=== PATIENT | male | born 1970 | race Caucasian/White ===

== ENCOUNTER 2017-04-22 14:15 | Inpatient (IN) | payer OTHER ==
[2017-04-22] MEDS ORDERED: MAGNESIUM CITRATE 300 ML BOTTLE PO PRN (15:12)
[2017-04-22] MEDS ORDERED: hydrOXYzine PAMOATE 50 MG CAPSULE (FP) PO PRN (15:12)
[2017-04-22] MEDS ORDERED: NICOTINE POLACRILEX 2 MG GUM BUC PRN (15:12)
[2017-04-22] MEDS ORDERED: LOPERAMIDE HCL 2 MG CAPSULE PO PRN (15:12)
[2017-04-22] MEDS ORDERED: P-EPHED 60MG/TRIPROLIDI 2.5MG TABLET PO PRN (15:12)
[2017-04-22] MEDS ORDERED: MAGNESIUM HYDROX 2400MG/30ML ORAL SUSPENSION 30 ML CUP PO PRN (15:12)
[2017-04-22] MEDS ORDERED: MENTHOL/PHENOL 1 EACH UD MM PRN (15:12)
[2017-04-22] MEDS ORDERED: guaiFENesin/D-METHORPHAN HB 10 ML UNIT-DOSE CUPS PO PRN (15:12)
[2017-04-22] MEDS ORDERED: ALBUTEROL SO4 18 GM HFA INHALER IH PRN (15:15)
--- NOTE | 2017-04-22 15:15 | HP ---
[facility] Assess/Revision - Admission History Ad[facility] to Rehab [facility] Date of Admission to Rehab: 04/22/2017 - Vital signs Vital Signs: Vital Signs Period Temp Pulse Resp BP Sys/Howell Pulse Ox Last 24 Hr 98.3 F 67 18 115/59 - Findings Detox History & Physical reviewed: Yes Concur with findings: Yes Inpatient Rehab Admission - Initial Determination Are CD services needed?: Yes Free of communicable disease: Yes Not in need of hospitalization: Yes - Rehab Admission Criteria Comorbidities: Yes Patient is meeting Inpatient Rehab admission criteria:: Yes
[2017-04-22] MEDS: ALBUTEROL SO4 2.5/IPRATROPIUM 0.5 INH SOL 3 ML VIAL.NEB. NEB PRN (15:32)
[2017-04-22] MEDS: THIAMINE HCL 100 MG TABLET (FP) PO SCH (21:27)
--- NOTE | 2017-04-22 22:37 | PN ---
[facility] Progress Note Note: received nurse called that the methadone 110 mg po daily verified with [facility] detox
--- NOTE | 2017-04-22 22:39 | HP ---
Admission [facility] Allergies/Adverse Reactions: Allergies Allergy/AdvReac Type Severity Reaction Status Date / Time Fish Containing Products Allergy Verified 04/18/17 16:44 No Known Drug Allergies Allergy Verified 04/18/17 16:44 tomato Allergy Verified 04/18/17 16:44 - Ebola screening Have you traveled outside of the country in the last 21 days: No Have you had contact with anyone from an Ebola affected area: No Patient History - Patient Medical History Hx Anemia: No Hx Asthma: Yes Hx Chronic Obstructive Pulmonary Disease (COPD): Yes Hx Cancer: No Hx Cardiac Disorders: No Hx Congestive Heart Failure: No Hx Hypertension: No Hx Hypercholesterolemia: No Hx Pacemaker: No HX Cerebrovascular Accident: No Hx Seizures: Yes (childhood seizures. last 20 yrs ago) Hx Dementia: No Hx Diabetes: No Hx Gastrointestinal Disorders: No Hx Liver Disease: No Hx Genitourinary Disorders: No Hx Sexually Transmitted Disorders: No Hx Renal Disease (ESRD): No Hx Thyroid Disease: No Hx Human Immunodeficiency Virus (HIV): No Hx Hepatitis C: No Hx Depression: Yes Hx Suicide Attempt: No Hx Bipolar Disorder: No Hx Schizophrenia: No - Patient Surgical History Past Surgical History: No Hx Neurologic Surgery: No Hx Cataract Extraction: No Hx Cardiac Surgery: No Hx Lung Surgery: No Hx Breast Surgery: No Hx Breast Biopsy: No Hx Abdominal Surgery: No Hx Appendectomy: No Hx Cholecystectomy: No Hx Genitourinary Surgery: No Hx Section: No Hx Orthopedic Surgery: No Anesthesia Reaction: No - PPD History Previous Implant?: No Documented Results: Negative w/o proof Implanted On Prior [facility] Admission?: No - Smoking Cessation Smoking history: Current every day smoker Aproximately how many cigarettes per day: 15 Hx Chewing Tobacco Use: No Initiated information on smoking cessation: Yes 'Breaking Loose' booklet given: 04/22/17 - Substances Abused Alcohol Route: Oral Frequency: Daily Amount used: 6 cans of 24 oz Age of first use: 13 Date of Last Use: 04/18/17 Cocaine Route: Inhalation Frequency: Daily Amount used: $100 Age of first use: 15 Date of Last Use: 04/18/17 Family Disease History - Family Disease History Family Disease History: Heart Disease: Father (HTN), Mother ([place]), Brother ([place], ) Admission Physical Exam [facility] - Vital Signs Vital Signs: Vital Signs - 24 hr 04/22/17 14:29 Temperature 98.3 F Pulse Rate 67 Respiratory 18 Rate Blood Pressure 115/59 BHS Breath Alcohol Content Breath Alcohol Content: 0 Inpatient Rehab Admission - Initial Determination Are CD services needed?: Yes Free of communicable disease: Yes Not in need of hospitalization: Yes - Rehab Admission Criteria Previous failed treatment: Yes Poor recovery environment: Yes Comorbidities: Yes Lacks judgement: No Patient is meeting Inpatient Rehab admission criteria:: Yes
[2017-04-22] MEDS: MONTELUKAST NA 10 MG TABLET PO SCH (23:21)
[2017-04-22] MEDS: BUDESONIDE/FORMETEROL FUMARATE 80/4.5 mcg INHALER IH SCH (23:21)
[2017-04-23] MEDS ORDERED: METHADONE HCL 10 MG TABLET ONE (04:49)
[2017-04-23] MEDS ORDERED: METHADONE HCL 40 MG DISPERSABLE TABLET ONE (04:50)
[2017-04-23] MEDS ORDERED: METHADONE HCL 10 MG TABLET PO SCH (06:00)
[2017-04-23] MEDS: METHADONE 80 MG, METHADONE 30 MG PO SCH (06:08)
[2017-04-23] MEDS: IBUPROFEN 400 MG TABLET (FP) PO PRN (06:10)
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
[2017-04-23] MEDS: ALBUTEROL SO4 2.5/IPRATROPIUM 0.5 INH SOL 3 ML VIAL.NEB. NEB PRN (07:26)
[2017-04-23] MEDS: BUDESONIDE/FORMETEROL FUMARATE 80/4.5 mcg INHALER IH SCH ×2 (10:09→21:41)
[2017-04-23] MEDS: PRENATAL VITAMINS W/ FOLIC ACID TABLET (FP) PO SCH (10:09)
[2017-04-23] MEDS: NICOTINE 14 MG/24 HOURS TOPICAL PATCH TD SCH (10:09)
[2017-04-23] MEDS: ALBUTEROL SO4 2.5/IPRATROPIUM 0.5 INH SOL 3 ML VIAL.NEB. NEB SCH ×3 (18:56→21:42)
[2017-04-23] MEDS: THIAMINE HCL 100 MG TABLET (FP) PO SCH (21:41)
[2017-04-23] MEDS: MONTELUKAST NA 10 MG TABLET PO SCH (21:42)
[2017-04-24] MEDS ORDERED: METHADONE HCL 10 MG TABLET ONE (03:07)
[2017-04-24] MEDS ORDERED: METHADONE HCL 40 MG DISPERSABLE TABLET ONE (03:07)
[2017-04-24] MEDS: METHADONE 80 MG, METHADONE 30 MG PO SCH (06:27)
[2017-04-24] MEDS: ALBUTEROL SO4 2.5/IPRATROPIUM 0.5 INH SOL 3 ML VIAL.NEB. NEB SCH ×4 (06:29→21:19)
[2017-04-24] MEDS: BUDESONIDE/FORMETEROL FUMARATE 80/4.5 mcg INHALER IH SCH ×2 (10:03→21:21)
[2017-04-24] MEDS: NICOTINE 14 MG/24 HOURS TOPICAL PATCH TD SCH (10:14)
[2017-04-24] MEDS: PRENATAL VITAMINS W/ FOLIC ACID TABLET (FP) PO SCH (10:14)
[2017-04-24] MEDS: IBUPROFEN 400 MG TABLET (FP) PO PRN (17:13)
[2017-04-24] MEDS: ACETAMINOPHEN 325 MG TABLET (FP) PO PRN (18:14)
[2017-04-24] MEDS: NAPROXEN 500 MG TABLET (FP) PO SCH ×2 (21:21→22:14)
[2017-04-24] MEDS: MONTELUKAST NA 10 MG TABLET PO SCH (21:22)
[2017-04-24] MEDS: THIAMINE HCL 100 MG TABLET (FP) PO SCH (21:22)
[2017-04-24] MEDS: hydrOXYzine PAMOATE 50 MG CAPSULE (FP) PO PRN (21:24)
[2017-04-24] MEDS ORDERED: NAPROXEN 500 MG TABLET (FP) PO SCH (22:00)
[2017-04-25] MEDS ORDERED: METHADONE HCL 10 MG TABLET ONE (02:47)
[2017-04-25] MEDS ORDERED: METHADONE HCL 40 MG DISPERSABLE TABLET ONE (02:48)
[2017-04-25] MEDS: ALBUTEROL SO4 2.5/IPRATROPIUM 0.5 INH SOL 3 ML VIAL.NEB. NEB SCH ×5 (06:18→21:43)
[2017-04-25] MEDS: METHADONE 80 MG, METHADONE 30 MG PO SCH (06:19)
[2017-04-25] MEDS: PRENATAL VITAMINS W/ FOLIC ACID TABLET (FP) PO SCH (10:15)
[2017-04-25] MEDS: NAPROXEN 500 MG TABLET (FP) PO SCH ×2 (10:15→21:41)
[2017-04-25] MEDS: NICOTINE 14 MG/24 HOURS TOPICAL PATCH TD SCH (10:16)
[2017-04-25] MEDS: BUDESONIDE/FORMETEROL FUMARATE 80/4.5 mcg INHALER IH SCH ×2 (10:18→21:40)
--- NOTE | 2017-04-25 14:37 | PN ---
[facility] Progress Note Note: Tooth ache left lower molar Vital Signs - 8 hr 04/25/17 07:14 Temperature 98.3 F Pulse Rate 64 Respiratory 16 Rate Blood Pressure 136/85 Exam : Missing 2nd LLM with swollen gum Dx. : R/O Dental Abscess Gingivitis P : Amoxicillin, Viscous Lidocaine
[2017-04-25] MEDS: AMOXICILLIN 500 MG CAPSULE (FP) PO SCH ×2 (15:00→21:41)
[2017-04-25] MEDS: LIDOCAINE VISCOUS 2% ORAL/TOP 20 ML UNIT-DOSE CUP MM PRN (15:00)
[2017-04-25] MEDS: MONTELUKAST NA 10 MG TABLET PO SCH (21:41)
[2017-04-25] MEDS: THIAMINE HCL 100 MG TABLET (FP) PO SCH (21:41)
[2017-04-25] MEDS: hydrOXYzine PAMOATE 50 MG CAPSULE (FP) PO PRN (21:41)
[2017-04-26] MEDS ORDERED: METHADONE HCL 10 MG TABLET ONE (03:38)
[2017-04-26] MEDS ORDERED: METHADONE HCL 40 MG DISPERSABLE TABLET ONE (03:38)
[2017-04-26] MEDS: AMOXICILLIN 500 MG CAPSULE (FP) PO SCH ×3 (06:20→21:45)
[2017-04-26] MEDS: METHADONE 80 MG, METHADONE 30 MG PO SCH (06:21)
[2017-04-26] MEDS: ACETAMINOPHEN 325 MG TABLET (FP) PO PRN ×2 (06:22→17:22)
[2017-04-26] MEDS: PRENATAL VITAMINS W/ FOLIC ACID TABLET (FP) PO SCH (09:48)
[2017-04-26] MEDS: NICOTINE 14 MG/24 HOURS TOPICAL PATCH TD SCH (09:48)
[2017-04-26] MEDS: BUDESONIDE/FORMETEROL FUMARATE 80/4.5 mcg INHALER IH SCH ×2 (09:48→21:47)
[2017-04-26] MEDS: NAPROXEN 500 MG TABLET (FP) PO SCH ×2 (09:48→21:46)
[2017-04-26] MEDS: ALBUTEROL SO4 2.5/IPRATROPIUM 0.5 INH SOL 3 ML VIAL.NEB. NEB SCH ×4 (10:08→21:48)
[2017-04-26] MEDS: MAG HYDROX/AL HYDROX/SIMETH 30 ML UNIT-DOSE CUP PO PRN (14:54)
[2017-04-26] MEDS: hydrOXYzine PAMOATE 50 MG CAPSULE (FP) PO PRN ×2 (17:24→21:49)
[2017-04-26] MEDS: MONTELUKAST NA 10 MG TABLET PO SCH (21:45)
[2017-04-26] MEDS: HYDROCORTISONE 1% TOPICAL CREAM 30 GM TUBE TP SCH (21:46)
[2017-04-26] MEDS: THIAMINE HCL 100 MG TABLET (FP) PO SCH (21:48)
[2017-04-27] MEDS ORDERED: METHADONE HCL 40 MG DISPERSABLE TABLET ONE (02:44)
[2017-04-27] MEDS ORDERED: METHADONE HCL 10 MG TABLET ONE (02:44)
[2017-04-27] MEDS: AMOXICILLIN 500 MG CAPSULE (FP) PO SCH ×3 (06:20→21:12)
[2017-04-27] MEDS: METHADONE 80 MG, METHADONE 30 MG PO SCH (06:21)
[2017-04-27] MEDS: ALBUTEROL SO4 2.5/IPRATROPIUM 0.5 INH SOL 3 ML VIAL.NEB. NEB SCH ×5 (09:25→23:00)
[2017-04-27] MEDS: NAPROXEN 500 MG TABLET (FP) PO SCH ×2 (09:55→21:12)
[2017-04-27] MEDS: BUDESONIDE/FORMETEROL FUMARATE 80/4.5 mcg INHALER IH SCH ×2 (09:56→22:05)
[2017-04-27] MEDS: NICOTINE 14 MG/24 HOURS TOPICAL PATCH TD SCH (09:56)
[2017-04-27] MEDS: PRENATAL VITAMINS W/ FOLIC ACID TABLET (FP) PO SCH (09:56)
[2017-04-27] MEDS: HYDROCORTISONE 1% TOPICAL CREAM 30 GM TUBE TP SCH ×4 (09:56→22:05)
[2017-04-27] MEDS: LIDOCAINE VISCOUS 2% ORAL/TOP 20 ML UNIT-DOSE CUP MM PRN (09:58)
[2017-04-27] MEDS: MONTELUKAST NA 10 MG TABLET PO SCH (21:12)
[2017-04-27] MEDS: hydrOXYzine PAMOATE 50 MG CAPSULE (FP) PO PRN (21:12)
[2017-04-27] MEDS: THIAMINE HCL 100 MG TABLET (FP) PO SCH (21:12)
[2017-04-27] MEDS: MAG HYDROX/AL HYDROX/SIMETH 30 ML UNIT-DOSE CUP PO PRN (23:08)
[2017-04-28] MEDS ORDERED: METHADONE HCL 40 MG DISPERSABLE TABLET ONE (04:21)
[2017-04-28] MEDS ORDERED: METHADONE HCL 10 MG TABLET ONE (04:21)
[2017-04-28] MEDS: METHADONE 80 MG, METHADONE 30 MG PO SCH (05:59)
[2017-04-28] MEDS: AMOXICILLIN 500 MG CAPSULE (FP) PO SCH ×3 (06:00→21:44)
[2017-04-28] MEDS: NICOTINE 14 MG/24 HOURS TOPICAL PATCH TD SCH (10:31)
[2017-04-28] MEDS: BUDESONIDE/FORMETEROL FUMARATE 80/4.5 mcg INHALER IH SCH ×2 (10:31→21:44)
[2017-04-28] MEDS: ALBUTEROL SO4 2.5/IPRATROPIUM 0.5 INH SOL 3 ML VIAL.NEB. NEB SCH ×4 (10:32→21:43)
[2017-04-28] MEDS: NAPROXEN 500 MG TABLET (FP) PO SCH ×2 (10:32→21:44)
[2017-04-28] MEDS: PRENATAL VITAMINS W/ FOLIC ACID TABLET (FP) PO SCH (10:32)
[2017-04-28] MEDS: HYDROCORTISONE 1% TOPICAL CREAM 30 GM TUBE TP SCH ×4 (10:32→21:48)
--- NOTE | 2017-04-28 12:01 | PN ---
S Progress Note Note: c/o toothaceh still on antibiotics and naprosyn, will start neurontin 100mg tid for nerve pain can increase as needed.
--- NOTE | 2017-04-28 13:11 | PN ---
Psychiatric Progress Note Vital Signs: Vital Signs Period Temp Pulse Resp BP Sys/Howell Pulse Ox Last 24 Hr 98.2 F 63 18 144/78 Date of Session: 04/28/17 Chief Complaint:: Auditory hallucinatioms and anxiety HPI: Patient addressing Alcohol Dependence comorbid with Opoid Dependence on Agonist Therapy, Nicotine Dependence, Mood Disorder and Substance-induced Sleep Disorder ROS: Asthma, PPD+, H/O Seizure Disorder, H/O [place] s/p stent Current Medications: Active Medications Generic Name Dose Route Start Last Admin Trade Name Freq PRN Reason Stop Dose Admin Acetaminophen 650 mg 04/22/17 15:12 04/26/17 17:22 Tylenol - PO 650 mg Q4H PRN Administration FEVER OR PAIN Al Hydroxide/Mg Hydroxide 30 ml 04/22/17 15:12 04/27/17 23:08 Mylanta Oral Suspension - PO 30 ml Q6H PRN Administration DYSPEPSIA Albuterol Sulfate 2 puff 04/22/17 15:15 04/26/17 17:24 Ventolin Hfa Inhaler - IH 2 puff Q4H PRN Administration Albuterol/Ipratropium 1 amp 04/23/17 14:00 04/28/17 10:32 Duoneb - NEB 1 amp Q4HWA SAUL Administration Amoxicillin 500 mg 04/25/17 14:45 04/28/17 06:00 Amoxicillin - PO 500 mg TID SAUL Administration Budesonide/Formoterol Fumarate 2 puff 04/22/17 22:00 04/28/17 10:31 Symbicort 80/4.5mcg - IH 2 puff BID SAUL Administration Eucalyptus/Menthol/Phenol/Sorbitol 1 each 04/22/17 15:12 Cepastat Lozenge - MM Q4H PRN SORE THROAT Gabapentin 100 mg 04/28/17 14:00 Neurontin - PO TID SAUL Guaifenesin 10 ml 04/22/17 15:12 Robitussin Dm - PO Q6H PRN COUGH Hydrocortisone 1 applic 04/26/17 22:00 04/28/17 10:32 Hytone 1% Cream - TP 1 applic QID SAUL Administration Hydroxyzine Pamoate 50 mg 04/23/17 10:25 04/27/17 21:12 Vistaril - PO 50 mg Q4H PRN Administration ANXIETY Lidocaine HCl 20 ml 04/25/17 14:33 04/27/17 09:58 Xylocaine 2% Viscous Oral - MM 20 ml Q4HPO PRN Administration ORAL PAIN/MOUTH SORES Loperamide HCl 4 mg 04/22/17 15:12 Imodium - PO Q6H PRN DIARRHEA Magnesium Hydroxide 30 ml 04/22/17 15:12 Milk Of Magnesia - PO DAILY PRN CONSTIPATION Methadone HCl 80 mg/ Methadone 110 mg 04/29/17 06:00 HCl 30 mg PO 05/05/17 05:59 DAILY@0600 SAUL Montelukast Sodium 10 mg 04/22/17 22:00 04/27/17 21:12 Singulair - PO 10 mg HS SAUL Administration Naproxen 500 mg 04/24/17 21:05 04/28/17 10:32 Naprosyn - PO 500 mg BID SAUL Administration Nicotine 14 mg 04/23/17 10:00 04/28/17 10:31 Nicoderm Patch - TD 14 mg DAILY SAUL Administration Nicotine Polacrilex 2 mg 04/22/17 15:12 Nicorette Gum - BUC Q2H PRN NICOTINE REPLACEMENT RX Multivit/Folic Acid/Iron 1 tab 04/23/17 10:00 04/28/17 10:32 Vitamins (Sjr) - PO 1 tab DAILY SAUL Administration Pseudoephedrine/Triprolidine 1 combo 04/22/17 15:12 Actifed - PO TID PRN NASAL CONGESTION Quetiapine Fumarate 100 mg 04/28/17 22:00 Seroquel - PO HS SAUL Thiamine HCl 100 mg 04/22/17 22:00 04/27/17 21:12 Vitamin B1 - PO 100 mg HS SUAL Administration Medication(s) Change(s): Start Seroquel 100 mg po HS Current Side Effect: No Lab tests ordered: Yes Lab tests reviewed: Yes Provider note:: Requested to see science writer. Met with patient in the office. Reports that he feels like his mental illness is coming back. Claims he has been hearing voices and feeling very anxious. He said that he comes here to address his substance abuse problem so he can resumes his psychiatriatric care in the community. Denies hearing voices, suicidal, homicidal ideations Total face to face time:: 25 Mental Status Exam - Mental Status Exam Alert and Oriented to: Time, Place, Person Cognitive Function: Fair Mood: Anxious Affect: Appropriate Patient Behavior: Cooperative Speech Pattern: Clear Voice Loudness: Normal Thought Process: Intact Thought Disorder: Not Present Hallucinations: Denies (at present) Suicidal Ideation: Denies Homicidal Ideation: Denies Sleep: Fair Appetite: Good Muscle strength/Tone: Normal Gait/Station: Spastic Psychiatric Treatment Plan - Problem List (1) Opioid dependence on agonist therapy Current Visit: No (2) Stented coronary artery Current Visit: No Initial treatment plan: 1) Start Seroquel 100 mg po HS. 2) Monitor progress (3) Status post myocardial infarction of inferior wall Current Visit: No (4) Asthma Current Visit: No Qualifiers: Asthma severity: mild Asthma persistence: intermittent Asthma complication type: uncomplicated Qualified Code(s): J45.20 - Mild intermittent asthma, uncomplicated (5) Substance induced mood disorder Current Visit: No (6) Substance-induced sleep disorder Current Visit: No (7) Nicotine dependence Current Visit: No Qualifiers: Nicotine product type: cigarettes Substance use status: in withdrawal Qualified Code(s): F17.213 - Nicotine dependence, cigarettes, with withdrawal (8) PPD positive, treated Current Visit: No (9) History of seizure Current Visit: No (10) Alcohol dependence Current Visit: Yes (11) Mood disorder Current Visit: Yes Initial treatment plan: 1) Start Seroquel 100 mg po HS. 2) Monitor progress
[2017-04-28] MEDS: GABAPENTIN 100 MG CAPSULE (FP) PO SCH ×2 (13:45→21:44)
[2017-04-28] MEDS: hydrOXYzine PAMOATE 50 MG CAPSULE (FP) PO PRN ×2 (13:46→23:46)
[2017-04-28] MEDS: THIAMINE HCL 100 MG TABLET (FP) PO SCH (21:44)
[2017-04-28] MEDS: MONTELUKAST NA 10 MG TABLET PO SCH (21:44)
[2017-04-28] MEDS: QUEtiapine FUMARATE 100 MG TABLET (FP) PO SCH (21:45)
[2017-04-29] MEDS ORDERED: METHADONE HCL 40 MG DISPERSABLE TABLET ONE (04:17)
[2017-04-29] MEDS ORDERED: METHADONE HCL 10 MG TABLET ONE (04:17)
[2017-04-29] MEDS: METHADONE 80 MG, METHADONE 30 MG PO SCH (06:24)
[2017-04-29] MEDS: GABAPENTIN 100 MG CAPSULE (FP) PO SCH ×3 (06:25→21:46)
[2017-04-29] MEDS: AMOXICILLIN 500 MG CAPSULE (FP) PO SCH ×3 (06:25→21:46)
[2017-04-29] MEDS: ACETAMINOPHEN 325 MG TABLET (FP) PO PRN ×2 (06:28→14:29)
[2017-04-29] MEDS: LIDOCAINE VISCOUS 2% ORAL/TOP 20 ML UNIT-DOSE CUP MM PRN (06:29)
[2017-04-29] MEDS: ALBUTEROL SO4 2.5/IPRATROPIUM 0.5 INH SOL 3 ML VIAL.NEB. NEB SCH ×5 (07:32→18:01)
[2017-04-29] MEDS: BUDESONIDE/FORMETEROL FUMARATE 80/4.5 mcg INHALER IH SCH ×2 (10:09→21:45)
[2017-04-29] MEDS: NAPROXEN 500 MG TABLET (FP) PO SCH ×2 (10:10→21:45)
[2017-04-29] MEDS: PRENATAL VITAMINS W/ FOLIC ACID TABLET (FP) PO SCH (10:10)
[2017-04-29] MEDS: NICOTINE 14 MG/24 HOURS TOPICAL PATCH TD SCH (10:10)
[2017-04-29] MEDS: HYDROCORTISONE 1% TOPICAL CREAM 30 GM TUBE TP SCH ×4 (10:10→21:51)
[2017-04-29] MEDS: MAG HYDROX/AL HYDROX/SIMETH 30 ML UNIT-DOSE CUP PO PRN (11:23)
[2017-04-29] MEDS: THIAMINE HCL 100 MG TABLET (FP) PO SCH (21:45)
[2017-04-29] MEDS: MONTELUKAST NA 10 MG TABLET PO SCH (21:46)
[2017-04-29] MEDS: QUEtiapine FUMARATE 100 MG TABLET (FP) PO SCH (21:46)
[2017-04-30] MEDS ORDERED: METHADONE HCL 10 MG TABLET ONE (04:15)
[2017-04-30] MEDS ORDERED: METHADONE HCL 40 MG DISPERSABLE TABLET ONE (04:16)
[2017-04-30] MEDS: GABAPENTIN 100 MG CAPSULE (FP) PO SCH ×3 (06:00→21:51)
[2017-04-30] MEDS: METHADONE 80 MG, METHADONE 30 MG PO SCH (06:00)
[2017-04-30] MEDS: AMOXICILLIN 500 MG CAPSULE (FP) PO SCH ×3 (06:00→21:51)
[2017-04-30] MEDS: ALBUTEROL SO4 2.5/IPRATROPIUM 0.5 INH SOL 3 ML VIAL.NEB. NEB SCH ×6 (07:37→21:53)
[2017-04-30] MEDS: NICOTINE 14 MG/24 HOURS TOPICAL PATCH TD SCH (10:09)
[2017-04-30] MEDS: PRENATAL VITAMINS W/ FOLIC ACID TABLET (FP) PO SCH (10:09)
[2017-04-30] MEDS: NAPROXEN 500 MG TABLET (FP) PO SCH ×2 (10:09→21:51)
[2017-04-30] MEDS: HYDROCORTISONE 1% TOPICAL CREAM 30 GM TUBE TP SCH ×4 (10:09→21:53)
[2017-04-30] MEDS: BUDESONIDE/FORMETEROL FUMARATE 80/4.5 mcg INHALER IH SCH ×2 (10:10→21:51)
--- NOTE | 2017-04-30 12:35 | PN ---
[facility] Progress Note (SOAP) Subjective: c/o athletes feet requesting cream Objective: 04/30/17 12:34 Vital Signs - 24 hr 04/30/17 04/30/17 04/30/17 00:30 03:30 08:17 Temperature 98.3 F Pulse Rate 62 Respiratory 20 20 20 Rate Blood Pressure 127/78 athletes foot Assessment: 04/30/17 12:34 athletes feet Plan: tinactin ordered, coulsed re: foot hygiene
[2017-04-30] MEDS: TOLNAFTATE 1% CREAM 15 GM TUBE TP SCH ×2 (14:23→21:55)
[2017-04-30] MEDS: ACETAMINOPHEN 325 MG TABLET (FP) PO PRN (14:25)
[2017-04-30] MEDS: MAG HYDROX/AL HYDROX/SIMETH 30 ML UNIT-DOSE CUP PO PRN (19:17)
[2017-04-30] MEDS: MONTELUKAST NA 10 MG TABLET PO SCH (21:51)
[2017-04-30] MEDS: QUEtiapine FUMARATE 100 MG TABLET (FP) PO SCH (21:51)
[2017-04-30] MEDS: THIAMINE HCL 100 MG TABLET (FP) PO SCH (21:51)
[2017-04-30] MEDS: hydrOXYzine PAMOATE 50 MG CAPSULE (FP) PO PRN (21:56)
[2017-05-01] MEDS ORDERED: METHADONE HCL 10 MG TABLET ONE (05:49)
[2017-05-01] MEDS ORDERED: METHADONE HCL 40 MG DISPERSABLE TABLET ONE (05:49)
[2017-05-01] MEDS: METHADONE 80 MG, METHADONE 30 MG PO SCH (06:42)
[2017-05-01] MEDS: AMOXICILLIN 500 MG CAPSULE (FP) PO SCH ×3 (06:42→21:35)
[2017-05-01] MEDS: GABAPENTIN 100 MG CAPSULE (FP) PO SCH ×3 (06:42→21:35)
[2017-05-01] MEDS: ALBUTEROL SO4 2.5/IPRATROPIUM 0.5 INH SOL 3 ML VIAL.NEB. NEB SCH ×3 (06:43→15:12)
[2017-05-01] MEDS: hydrOXYzine PAMOATE 50 MG CAPSULE (FP) PO PRN ×2 (06:45→21:38)
[2017-05-01] MEDS: HYDROCORTISONE 1% TOPICAL CREAM 30 GM TUBE TP SCH ×4 (10:55→21:36)
[2017-05-01] MEDS: TOLNAFTATE 1% CREAM 15 GM TUBE TP SCH ×2 (10:56→21:36)
[2017-05-01] MEDS: BUDESONIDE/FORMETEROL FUMARATE 80/4.5 mcg INHALER IH SCH ×2 (10:56→22:41)
[2017-05-01] MEDS: PRENATAL VITAMINS W/ FOLIC ACID TABLET (FP) PO SCH (10:56)
[2017-05-01] MEDS: NICOTINE 14 MG/24 HOURS TOPICAL PATCH TD SCH (10:56)
[2017-05-01] MEDS: NAPROXEN 500 MG TABLET (FP) PO SCH ×2 (10:56→21:35)
[2017-05-01] MEDS: ACETAMINOPHEN 325 MG TABLET (FP) PO PRN (13:45)
[2017-05-01] MEDS: MONTELUKAST NA 10 MG TABLET PO SCH (21:35)
[2017-05-01] MEDS: QUEtiapine FUMARATE 100 MG TABLET (FP) PO SCH (21:40)
[2017-05-01] MEDS: THIAMINE HCL 100 MG TABLET (FP) PO SCH (22:41)
[2017-05-02] MEDS ORDERED: METHADONE HCL 10 MG TABLET ONE (05:09)
[2017-05-02] MEDS ORDERED: METHADONE HCL 40 MG DISPERSABLE TABLET ONE (05:09)
[2017-05-02] MEDS: ALBUTEROL SO4 2.5/IPRATROPIUM 0.5 INH SOL 3 ML VIAL.NEB. NEB SCH ×7 (06:19→17:23)
[2017-05-02] MEDS: GABAPENTIN 100 MG CAPSULE (FP) PO SCH ×3 (06:19→22:00)
[2017-05-02] MEDS: METHADONE 80 MG, METHADONE 30 MG PO SCH (06:19)
[2017-05-02] MEDS: AMOXICILLIN 500 MG CAPSULE (FP) PO SCH ×2 (06:19→14:06)
[2017-05-02] MEDS: LIDOCAINE VISCOUS 2% ORAL/TOP 20 ML UNIT-DOSE CUP MM PRN (06:21)
[2017-05-02] MEDS: MAG HYDROX/AL HYDROX/SIMETH 30 ML UNIT-DOSE CUP PO PRN ×2 (08:22→22:19)
[2017-05-02] MEDS: PRENATAL VITAMINS W/ FOLIC ACID TABLET (FP) PO SCH (10:25)
[2017-05-02] MEDS: NAPROXEN 500 MG TABLET (FP) PO SCH ×2 (10:26→22:15)
[2017-05-02] MEDS: NICOTINE 14 MG/24 HOURS TOPICAL PATCH TD SCH (10:26)
[2017-05-02] MEDS: HYDROCORTISONE 1% TOPICAL CREAM 30 GM TUBE TP SCH ×4 (10:26→22:00)
[2017-05-02] MEDS: BUDESONIDE/FORMETEROL FUMARATE 80/4.5 mcg INHALER IH SCH ×2 (10:27→22:01)
[2017-05-02] MEDS: TOLNAFTATE 1% CREAM 15 GM TUBE TP SCH ×2 (10:27→22:00)
[2017-05-02] MEDS: MONTELUKAST NA 10 MG TABLET PO SCH (22:00)
[2017-05-02] MEDS: THIAMINE HCL 100 MG TABLET (FP) PO SCH (22:00)
[2017-05-02] MEDS: QUEtiapine FUMARATE 100 MG TABLET (FP) PO SCH (22:00)
[2017-05-02] MEDS: hydrOXYzine PAMOATE 50 MG CAPSULE (FP) PO PRN (22:02)
[2017-05-03] MEDS ORDERED: METHADONE HCL 10 MG TABLET ONE (04:19)
[2017-05-03] MEDS ORDERED: METHADONE HCL 40 MG DISPERSABLE TABLET ONE (04:20)
[2017-05-03] MEDS: ALBUTEROL SO4 2.5/IPRATROPIUM 0.5 INH SOL 3 ML VIAL.NEB. NEB SCH ×2 (06:00→10:33)
[2017-05-03] MEDS: METHADONE 80 MG, METHADONE 30 MG PO SCH (06:38)
[2017-05-03] MEDS: GABAPENTIN 100 MG CAPSULE (FP) PO SCH ×3 (06:38→22:01)
[2017-05-03] MEDS: PRENATAL VITAMINS W/ FOLIC ACID TABLET (FP) PO SCH (10:31)
[2017-05-03] MEDS: NAPROXEN 500 MG TABLET (FP) PO SCH ×2 (10:31→22:01)
[2017-05-03] MEDS: NICOTINE 14 MG/24 HOURS TOPICAL PATCH TD SCH (10:32)
[2017-05-03] MEDS: HYDROCORTISONE 1% TOPICAL CREAM 30 GM TUBE TP SCH ×4 (10:32→22:00)
[2017-05-03] MEDS: TOLNAFTATE 1% CREAM 15 GM TUBE TP SCH ×2 (10:32→22:00)
[2017-05-03] MEDS: BUDESONIDE/FORMETEROL FUMARATE 80/4.5 mcg INHALER IH SCH ×2 (10:32→22:00)
[2017-05-03] MEDS: MAG HYDROX/AL HYDROX/SIMETH 30 ML UNIT-DOSE CUP PO PRN (10:37)
[2017-05-03] MEDS: ALBUTEROL SO4 2.5/IPRATROPIUM 0.5 INH SOL 3 ML VIAL.NEB. NEB PRN (13:05)
[2017-05-03] MEDS: MONTELUKAST NA 10 MG TABLET PO SCH (22:00)
[2017-05-03] MEDS: THIAMINE HCL 100 MG TABLET (FP) PO SCH (22:00)
[2017-05-03] MEDS: QUEtiapine FUMARATE 100 MG TABLET (FP) PO SCH (22:01)
[2017-05-03] MEDS: hydrOXYzine PAMOATE 50 MG CAPSULE (FP) PO PRN (22:01)
[2017-05-04] MEDS ORDERED: METHADONE HCL 10 MG TABLET ONE (04:47)
[2017-05-04] MEDS ORDERED: METHADONE HCL 40 MG DISPERSABLE TABLET ONE (04:48)
[2017-05-04] MEDS: GABAPENTIN 100 MG CAPSULE (FP) PO SCH ×3 (06:22→21:11)
[2017-05-04] MEDS: METHADONE 80 MG, METHADONE 30 MG PO SCH (06:22)
[2017-05-04] MEDS: LIDOCAINE VISCOUS 2% ORAL/TOP 20 ML UNIT-DOSE CUP MM PRN ×2 (06:25→15:44)
[2017-05-04] MEDS: NAPROXEN 500 MG TABLET (FP) PO SCH ×2 (10:05→21:12)
[2017-05-04] MEDS: BUDESONIDE/FORMETEROL FUMARATE 80/4.5 mcg INHALER IH SCH ×2 (10:05→21:10)
[2017-05-04] MEDS: PRENATAL VITAMINS W/ FOLIC ACID TABLET (FP) PO SCH (10:05)
[2017-05-04] MEDS: HYDROCORTISONE 1% TOPICAL CREAM 30 GM TUBE TP SCH ×4 (10:06→21:12)
[2017-05-04] MEDS: NICOTINE 14 MG/24 HOURS TOPICAL PATCH TD SCH (10:06)
[2017-05-04] MEDS: TOLNAFTATE 1% CREAM 15 GM TUBE TP SCH ×2 (10:06→21:10)
[2017-05-04] MEDS: ALBUTEROL SO4 2.5/IPRATROPIUM 0.5 INH SOL 3 ML VIAL.NEB. NEB PRN (10:36)
[2017-05-04] MEDS: MAG HYDROX/AL HYDROX/SIMETH 30 ML UNIT-DOSE CUP PO PRN (20:33)
[2017-05-04] MEDS: MONTELUKAST NA 10 MG TABLET PO SCH (21:11)
[2017-05-04] MEDS: QUEtiapine FUMARATE 100 MG TABLET (FP) PO SCH (21:11)
[2017-05-04] MEDS: hydrOXYzine PAMOATE 50 MG CAPSULE (FP) PO PRN (21:11)
[2017-05-04] MEDS: THIAMINE HCL 100 MG TABLET (FP) PO SCH (21:12)
[2017-05-05] MEDS ORDERED: METHADONE HCL 40 MG DISPERSABLE TABLET ONE (04:41)
[2017-05-05] MEDS ORDERED: METHADONE HCL 10 MG TABLET ONE (04:41)
[2017-05-05] MEDS: GABAPENTIN 100 MG CAPSULE (FP) PO SCH ×3 (06:31→22:04)
[2017-05-05] MEDS: METHADONE 80 MG, METHADONE 30 MG PO SCH (06:32)
[2017-05-05] MEDS: NICOTINE 14 MG/24 HOURS TOPICAL PATCH TD SCH (10:09)
[2017-05-05] MEDS: BUDESONIDE/FORMETEROL FUMARATE 80/4.5 mcg INHALER IH SCH ×2 (10:09→22:22)
[2017-05-05] MEDS: NAPROXEN 500 MG TABLET (FP) PO SCH ×2 (10:09→22:04)
[2017-05-05] MEDS: PRENATAL VITAMINS W/ FOLIC ACID TABLET (FP) PO SCH (10:09)
[2017-05-05] MEDS: HYDROCORTISONE 1% TOPICAL CREAM 30 GM TUBE TP SCH ×4 (10:10→22:06)
[2017-05-05] MEDS: TOLNAFTATE 1% CREAM 15 GM TUBE TP SCH ×2 (10:10→22:07)
[2017-05-05] MEDS: LIDOCAINE VISCOUS 2% ORAL/TOP 20 ML UNIT-DOSE CUP MM PRN ×2 (10:11→22:06)
[2017-05-05] MEDS: ALBUTEROL SO4 2.5/IPRATROPIUM 0.5 INH SOL 3 ML VIAL.NEB. NEB PRN (15:30)
[2017-05-05] MEDS: MONTELUKAST NA 10 MG TABLET PO SCH (22:04)
[2017-05-05] MEDS: THIAMINE HCL 100 MG TABLET (FP) PO SCH (22:04)
[2017-05-05] MEDS: QUEtiapine FUMARATE 100 MG TABLET (FP) PO SCH (22:04)
[2017-05-05] MEDS: hydrOXYzine PAMOATE 50 MG CAPSULE (FP) PO PRN (22:04)
[2017-05-06] MEDS ORDERED: METHADONE HCL 40 MG DISPERSABLE TABLET ONE (04:06)
[2017-05-06] MEDS ORDERED: METHADONE HCL 10 MG TABLET ONE (04:06)
[2017-05-06] MEDS: GABAPENTIN 100 MG CAPSULE (FP) PO SCH (06:24)
[2017-05-06] MEDS: METHADONE 80 MG, METHADONE 30 MG PO SCH (06:24)
[2017-05-06 07:00] VITALS: BP 117/79; PULSE 69; TEMP 97.8
--- NOTE | 2017-05-06 09:02 | PN ---
Psychiatric Progress Note Vital Signs: Vital Signs Period Temp Pulse Resp BP Sys/Howell Pulse Ox Last 24 Hr 97.8 F 69 20-20 117/79 Date of Session: 05/06/17 Chief Complaint:: Discharge Note HPI: Patient addressing Alcohol Dependence comorbid with Opoid Dependence on Agonist Therapy, Nicotine Dependence, Mood Disorder and Substance-induced Sleep Disorder ROS: Asthma, PPD+, H/O Seizure Disorder, H/O [place] with stent placement Current Medications: Active Medications Generic Name Dose Route Start Last Admin Trade Name Freq PRN Reason Stop Dose Admin Acetaminophen 650 mg 04/22/17 15:12 05/01/17 13:45 Tylenol - PO 650 mg Q4H PRN Administration FEVER OR PAIN Al Hydroxide/Mg Hydroxide 30 ml 04/22/17 15:12 05/04/17 20:33 Mylanta Oral Suspension - PO 30 ml Q6H PRN Administration DYSPEPSIA Albuterol Sulfate 2 puff 04/22/17 15:15 04/26/17 17:24 Ventolin Hfa Inhaler - IH 2 puff Q4H PRN Administration Albuterol/Ipratropium 1 amp 05/03/17 10:58 05/05/17 15:30 Duoneb - NEB 1 amp Q6H PRN Administration SHORTNESS OF BREATH Budesonide/Formoterol Fumarate 2 puff 04/22/17 22:00 05/05/17 22:22 Symbicort 80/4.5mcg - IH 2 puff BID SAUL Administration Eucalyptus/Menthol/Phenol/Sorbitol 1 each 04/22/17 15:12 Cepastat Lozenge - MM Q4H PRN SORE THROAT Gabapentin 100 mg 04/28/17 14:00 05/06/17 06:24 Neurontin - PO 100 mg TID SAUL Administration Guaifenesin 10 ml 04/22/17 15:12 Robitussin Dm - PO Q6H PRN COUGH Hydrocortisone 1 applic 04/26/17 22:00 05/05/17 22:06 Hytone 1% Cream - TP 1 applic QID SAUL Administration Hydroxyzine Pamoate 50 mg 04/23/17 10:25 05/05/17 22:04 Vistaril - PO 50 mg Q4H PRN Administration ANXIETY Lidocaine HCl 20 ml 04/25/17 14:33 11/13/17 22:06 Xylocaine 2% Viscous Oral - MM 20 ml Q4HPO PRN Administration ORAL PAIN/MOUTH SORES Loperamide HCl 4 mg 04/22/17 15:12 Imodium - PO Q6H PRN DIARRHEA Magnesium Hydroxide 30 ml 04/22/17 15:12 Milk Of Magnesia - PO DAILY PRN CONSTIPATION Methadone HCl 80 mg/ Methadone 110 mg 05/05/17 06:00 05/06/17 06:24 HCl 30 mg PO 110 mg DAILY@0600 SAUL Administration Montelukast Sodium 10 mg 04/22/17 22:00 05/05/17 22:04 Singulair - PO 10 mg HS SAUL Administration Naproxen 500 mg 04/24/17 21:05 05/05/17 22:04 Naprosyn - PO 500 mg BID SAUL Administration Nicotine 14 mg 04/23/17 10:00 05/05/17 10:09 Nicoderm Patch - TD 14 mg DAILY SAUL Administration Nicotine Polacrilex 2 mg 04/22/17 15:12 Nicorette Gum - BUC Q2H PRN NICOTINE REPLACEMENT RX Multivit/Folic Acid/Iron 1 tab 04/23/17 10:00 05/05/17 10:09 Vitamins (Sjr) - PO 1 tab DAILY SAUL Administration Pseudoephedrine/Triprolidine 1 combo 04/22/17 15:12 Actifed - PO TID PRN NASAL CONGESTION Quetiapine Fumarate 100 mg 04/28/17 22:00 05/05/17 22:04 Seroquel - PO 100 mg HS SAUL Administration Thiamine HCl 100 mg 04/22/17 22:00 05/05/17 22:04 Vitamin B1 - PO 100 mg HS SAUL Administration Tolnaftate 1 applic 04/30/17 13:15 05/05/17 22:07 Tinactin 1% Cream - TP 1 applic BID SAUL Administration Current Side Effect: No Lab tests ordered: Yes Lab tests reviewed: Yes Provider note:: Patient has completed this program today. He has met his treatment goals and will continue to addressed his issues in outpatient treatment at [facility]. He verbalized understanding of the consequences of his addiction and by being in this program, he has learned that he has to make an effort to change his lifestyle in order to maintain abstinence. He responded well to Seroquel 100 mg po HS. Script for 30 days supply of that medication is electronically transmitted to [facility] at [address] [place] [address]. He is stable for discharge on 05/06/17 Total face to face time:: 35 Mental Status Exam - Mental Status Exam Alert and Oriented to: Time, Place, Person Cognitive Function: Fair Patient Appearance: Well Groomed Mood: Hopeful, Euthymic Affect: Appropriate Patient Behavior: Cooperative Speech Pattern: Clear Voice Loudness: Normal Thought Process: Intact, Goal Oriented Thought Disorder: Not Present Hallucinations: Denies Suicidal Ideation: Denies Homicidal Ideation: Denies Insight/Judgement: Fair Sleep: Fair Appetite: Good Psychiatric Treatment Plan - Problem List (1) Opioid dependence on agonist therapy Current Visit: No (2) Stented coronary artery Current Visit: No (3) Status post myocardial infarction of inferior wall Current Visit: No (4) Asthma Current Visit: No Qualifiers: Asthma severity: mild Asthma persistence: intermittent Asthma complication type: uncomplicated Qualified Code(s): J45.20 - Mild intermittent asthma, uncomplicated (5) Substance induced mood disorder Current Visit: No (6) Substance-induced sleep disorder Current Visit: No (7) Nicotine dependence Current Visit: No Qualifiers: Nicotine product type: cigarettes Substance use status: in withdrawal Qualified Code(s): F17.213 - Nicotine dependence, cigarettes, with withdrawal (8) PPD positive, treated Current Visit: No (9) History of seizure Current Visit: No (10) Alcohol dependence Current Visit: Yes (11) Mood disorder Current Visit: Yes Initial treatment plan: Patient is discharged today and referred to [facility] for outpatient treatment
[2017-05-06] MEDS: NAPROXEN 500 MG TABLET (FP) PO SCH (09:19)
[2017-05-06] MEDS: PRENATAL VITAMINS W/ FOLIC ACID TABLET (FP) PO SCH (09:19)
[2017-05-06] MEDS: HYDROCORTISONE 1% TOPICAL CREAM 30 GM TUBE TP SCH (09:20)
[2017-05-06] MEDS: hydrOXYzine PAMOATE 50 MG CAPSULE (FP) PO PRN (09:21)
[2017-05-06] MEDS: BUDESONIDE/FORMETEROL FUMARATE 80/4.5 mcg INHALER IH SCH (09:21)
[2017-05-06] MEDS: NICOTINE 14 MG/24 HOURS TOPICAL PATCH TD SCH (09:22)
== END 2017-05-06 09:45 | disposition home or self-care (01) | DRG 772 ==
LOC: YASAS 14:15 → Y3W 14:16
PROVIDERS: ADMIT Psychiatry & Neurology Psychiatry; ATTEND Psychiatry & Neurology Psychiatry
PROC: HZ42ZZZ Group Counseling for Substance Abuse Treatment, Cognitive-Behavioral (ICD-10-PCS; principal; 2017-04-22)
DX: F11.20 Opioid dependence, uncomplicated (principal); F10.230 Alcohol dependence with withdrawal, uncomplicated; F17.213 Nicotine dependence, cigarettes, with withdrawal; F39 Unspecified mood [affective] disorder; F19.24 Other psychoactive substance dependence with psychoactive substance-induced mood disorder; F19.282 Other psychoactive substance dependence with psychoactive substance-induced sleep disorder; J45.20 Mild intermittent asthma, uncomplicated; R76.11 Nonspecific reaction to tuberculin skin test without active tuberculosis; I25.2 Old myocardial infarction; Z95.5 Presence of coronary angioplasty implant and graft; Z86.73 Personal history of transient ischemic attack (TIA), and cerebral infarction without residual deficits; Z59.0 Homelessness
CPT/HCPCS: 94640

== ENCOUNTER 2017-06-18 11:39 | Inpatient (IN) | payer OTHER ==
[2017-06-18 13:28] VITALS: BMI 35.9
--- NOTE | 2017-06-18 15:31 | HP ---
CIWA Score - CIWA Score Nausea/Vomitin Muscle Tremors: 3 Anxiety: 3 Agitation: 0-Normal Activity Paroxysmal Sweats: 3 Orientation: 0-Oriented Tacttile Disturbances: 2-Mild Itch/Numbness/Burn Auditory Disturbances: 1-Very Mild Visual Disturbances: 3-Moderate Sensitivity Headache: 4-Moderately Severe CIWA-Ar Total Score: 21 Admission ROS BHS - HPI Chief Complaint: "I need help." Patient is here to Detox from Alcohol. Allergies/Adverse Reactions: Allergies Allergy/AdvReac Type Severity Reaction Status Date / Time albuterol Allergy Severe Difficulty Verified 06/18/17 15:22 Breathing Fish Containing Products Allergy Verified 04/18/17 16:44 tomato Allergy Verified 04/18/17 16:44 History of Present Illness: Patient is a 46 YO male here to Detox from Alcohol. Patient has had 1 previous Detox admission at [facility] in the past (03/2017). Patient completed Rehab at [facility] immediately after Detox admission in 03/2017. Patient is a client at [facility] ([place], [place]): Daily Dose: 110 MG PO Daily. Last Day Medicated: Today, 06/18/2017. Verification Pending. Exam Limitations: No Limitations - Ebola screening Have you traveled outside of the country in the last 21 days: No (N) Have you had contact with anyone from an Ebola affected area: No Have you been sick,other than usual withdrawal symptoms: No Do you have a fever: No - Review of Systems Constitutional: Diaphoresis, Malaise, Night Sweats, Changes in sleep EENT: reports: No Symptoms Reported Respiratory: reports: Cough, SOB with Exertion Cardiac: reports: Palpitations GI: reports: Constipated, Nausea, Vomiting : reports: No Symptoms Reported Musculoskeletal: reports: Back Pain, Joint Pain, Muscle Pain, Neck Pain, Joint Stiffness Integumentary: reports: No Symptoms Reported Neuro: reports: Headache, Numbness (Tips of Fingers of Bilateral Hands.), Tingling (Tips of Fingers of Bilateral Hands.), Tremors Endocrine: reports: No Symptoms Reported Hematology: reports: No Symptoms Reported Psychiatric: reports: Judgement Intact, Mood/Affect Appropiate, Orientated x3, Anxious, Depressed (On med.) Other Systems: Reviewed and Negative Patient History - Patient Medical History Hx Anemia: No Hx Asthma: Yes (On meds. (Cannot use Ventolin Inhaler, Allergic to Albuterol).) Hx Chronic Obstructive Pulmonary Disease (COPD): Yes (Chronic Bronchitis.) Hx Cancer: No Hx Cardiac Disorders: Yes (HI (X 2): 2000, 2001.) Hx Congestive Heart Failure: Yes (Meds. in past, stopped taking approx. 4-5 years ago without Medical Consult) Hx Hypertension: No Hx Hypercholesterolemia: Yes (Meds. in past.) Hx Pacemaker: No HX Cerebrovascular Accident: No Hx Seizures: Yes (childhood seizures. last 20 yrs ago) Hx Dementia: No Hx Diabetes: Yes (Borderline, No medication.) Hx Gastrointestinal Disorders: No Hx Liver Disease: No Hx Genitourinary Disorders: No Hx Sexually Transmitted Disorders: No Hx Renal Disease (ESRD): No Hx Thyroid Disease: No Hx Human Immunodeficiency Virus (HIV): No (Last Tested: 01/2015: NEGATIVE.) Hx Hepatitis C: No (Last Tested: 01/2015: NEGATIVE.) Hx Depression: Yes (Takes Seroquel.) Hx Suicide Attempt: No (PATIENT DENIES CURRENT SI / HI.) Hx Bipolar Disorder: Yes Hx Schizophrenia: Yes Other Medical History: Antisocial Personality Disorder. - Patient Surgical History Past Surgical History: No Hx Neurologic Surgery: No Hx Cataract Extraction: No Hx Cardiac Surgery: No Hx Lung Surgery: No Hx Breast Surgery: No Hx Breast Biopsy: No Hx Abdominal Surgery: No Hx Appendectomy: No Hx Cholecystectomy: No Hx Genitourinary Surgery: No Hx Section: No Hx Orthopedic Surgery: No Anesthesia Reaction: No - PPD History Previous Implant?: Yes Documented Results: Positive w/o proof (Completed Full Course of Antibiotic Treatment: 1988.) Implanted On Prior [facility] Admission?: No PPD to be Administered?: No - Reproductive History Patient is a Female of Child Bearing Age (11 -55 yrs old): No (PATIENT IS MALE.) - Smoking Cessation Smoking history: Current every day smoker Aproximately how many cigarettes per day: 4 Cigars Per Day: 0 Hx Chewing Tobacco Use: No Initiated information on smoking cessation: Yes 'Breaking Loose' booklet given: 06/18/17 (GIVEN ON UNIT.) - Substance & Tx. History Hx Alcohol Use: Yes Hx Substance Use: Yes Substance Use Type: Alcohol Hx Substance Use Treatment: Yes (Previous Detox admissions at [facility]. Last: (with Rehab): 03/2017.) - Substances Abused Alcohol Route: Oral Frequency: Daily Amount used: 3-4 bottles of beer Age of first use: 13 Date of Last Use: 06/18/17 Family Disease History - Family Disease History Family Disease History: Heart Disease: Father (HTN; .), Mother (HI), Brother (HI,), Other: Mother Admission Physical Exam [facility] - Vital Signs Vital Signs: Vital Signs - 24 hr 06/18/17 13:27 Temperature 96.7 F L Pulse Rate 56 L Respiratory 16 Rate Blood Pressure 123/76 - Physical General Appearance: Yes: No Apparent Distress, Nourished, Appropriately Dressed , Tremorous, Anxious HEENTM: Yes: Hearing grossly Normal, Normocephalic, Normal Voice, ABDI, Pharynx Normal Respiratory: Yes: Chest Non-Tender, No Respiratory Distress, No Accessory Muscle Use, Wheezing Neck: Yes: No masses,lesions,Nodules, Supple, Trachea in good position Breast: Yes: Breast Exam Deferred Cardiology: Yes: Regular Rhythm, Regular Rate, S1, S2 Abdominal: Yes: Normal Bowel Sounds, Non Tender, Soft, Protuberent Genitourinary: Yes: Within Normal Limits Back: Yes: Decreased Range of Motion Musculoskeletal: Yes: Gait Steady, Back pain, Joint Stiffness Extremities: Yes: Normal Capillary Refill, Tremors Neurological: Yes: Fully Oriented, Alert, Normal Mood/Affect, Normal Response Integumentary: Yes: Normal Color, Dry, Warm Lymphatic: Yes: Within Normal Limits - Diagnostic (1) Methadone maintenance therapy patient Current Visit: Yes Status: Chronic (2) Alcohol dependence with uncomplicated withdrawal Current Visit: Yes Status: Acute (3) Asthma Current Visit: Yes Status: Chronic Qualifiers: Asthma severity: mild Asthma persistence: persistent Asthma complication type: uncomplicated Qualified Code(s): J45.30 - Mild persistent asthma, uncomplicated (4) Nicotine dependence Current Visit: Yes Status: Chronic Qualifiers: Nicotine product type: cigarettes Substance use status: uncomplicated Qualified Code(s): F17.210 - Nicotine dependence, cigarettes, uncomplicated (5) PPD positive, treated Current Visit: Yes Status: Resolved (6) History of seizure Current Visit: Yes Status: Chronic Comment: During Childhood. (7) Opioid dependence on agonist therapy Current Visit: Yes Status: Chronic (8) Status post myocardial infarction of inferior wall Current Visit: Yes Status: Resolved (9) Stented coronary artery Current Visit: Yes Status: Resolved (10) COPD with chronic bronchitis Current Visit: Yes Status: Chronic (11) Borderline diabetes mellitus Current Visit: Yes Status: Suspected (12) History of congestive heart failure Current Visit: Yes Status: Chronic (13) History of schizophrenia Current Visit: Yes Status: Chronic (14) History of bipolar disorder Current Visit: Yes Status: Chronic (15) History of depression Current Visit: Yes Status: Chronic (16) Hypercholesterolemia Current Visit: Yes Status: Chronic Cleared for Admission [facility] - Detox or Rehab [facility] Level of Care: Medically Managed Detox Regimen/Protocol: Valium (Patient Request Valium Detox Regimen.) [facility] Breath Alcohol Content Breath Alcohol Content: 0.013 Urine Drug Screen - Results Drug Screen Negative: No Urine Drug Screen Results: LAURA-Cocaine, MTD-Methadone
[2017-06-18] MEDS ORDERED: IBUPROFEN 400 MG TABLET (FP) PO PRN (16:25)
[2017-06-18] MEDS ORDERED: MAGNESIUM CITRATE 300 ML BOTTLE PO PRN (16:25)
[2017-06-18] MEDS ORDERED: guaiFENesin/D-METHORPHAN HB 10 ML UNIT-DOSE CUPS PO PRN (16:25)
[2017-06-18] MEDS ORDERED: LOPERAMIDE HCL 2 MG CAPSULE PO PRN (16:25)
[2017-06-18] MEDS ORDERED: diazePAM 5 MG TABLET PO PRN (16:25)
[2017-06-18] MEDS ORDERED: MAGNESIUM HYDROX 2400MG/30ML ORAL SUSPENSION 30 ML CUP PO PRN (16:25)
[2017-06-18] MEDS ORDERED: P-EPHED 60MG/TRIPROLIDI 2.5MG TABLET PO PRN (16:25)
[2017-06-18] MEDS ORDERED: MENTHOL/PHENOL 1 EACH UD MM PRN (16:25)
[2017-06-18] MEDS ORDERED: NICOTINE POLACRILEX 2 MG GUM BUC PRN (16:25)
[2017-06-18] MEDS ORDERED: ACETAMINOPHEN 325 MG TABLET (FP) PO PRN (16:25)
[2017-06-18] MEDS ORDERED: MAG HYDROX/AL HYDROX/SIMETH 30 ML UNIT-DOSE CUP PO PRN (16:25)
[2017-06-18] MEDS ORDERED: diazePAM 5 MG TABLET PO ONE (17:45)
[2017-06-18] MEDS: NICOTINE 21 MG/24 HOURS TOPICAL PATCH TD SCH (18:06)
--- NOTE | 2017-06-18 18:10 | CONSULT ---
[facility] Psychiatric Consult - Data Date of interview: 06/18/17 Admission source: [facility] Identifying data: Pt. is a 46 year old male, single, father of four, and unemployed. This is patient's one of multiple admission to [facility]. Pt. admitted to detox for alcohol withdrawal. Substance Abuse History: Following information confirmed with Mr. Villasenor: - Smoking Cessation. Smoking history: Current every day smoker. Aproximately how many cigarettes per day: 4. - Substance & Tx. History. Hx Alcohol Use: Yes. Hx Substance Use: Yes. Substance Use Type: Alcohol. Hx Substance Use Treatment: Yes (Previous Detox admissions at [facility]. Last: (with Rehab): 03/2017.) . Alcohol- Route: Oral Frequency: Daily. Amount used: 3-4 bottles of beer. Age of first use: 13. Date of Last Use: 06/18/17 Medical History: Asthma, 2 myocardial infarction (2000, 2001), Two stents in right artery, hypercholesterolemia, seizures (child andino seizures), borderline diabetes. Psychiatric History: Pt. reports h/o two psychiatric hospitalizations at [facility], [place], operated by [facility] in 2016. States he was admitted for having a nervous breakdown and hearing voices. States he has been hearing voices since the age 10. States the voices " talk and laugh at him". Pt. denies command auditory hallucinations. Pt. reports last seeing an outpatient psychiatrist 6 months ago. Reports taking the medication remeron, seroquel and ambien. Pt. only remembers the dosage of seroquel which was 100mg. 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 denies h/o suicide attempts. Pt. currently denies suicidal and homicidal ideation. Physical/Sexual Abuse/Trauma History: Pt. denies. Additional Comment: Urine Drug Screen Results: LAURA-Cocaine, MTD-Methadone Mental Status Exam - Mental Status Exam Alert and Oriented to: Time, Place, Person Cognitive Function: Fair Patient Appearance: Unkempt Mood: Withdrawn Affect: Flat Patient Behavior: Sedated, Fatigued, Guarded Speech Pattern: Delayed Voice Loudness: Moderately Soft/Quiet Thought Process: Goal Oriented Hallucinations: Denies (h/o auditory hallucinations but not at the moment.) Suicidal Ideation: Denies Homicidal Ideation: Denies Insight/Judgement: Poor Sleep: Poorly Appetite: Fair Muscle strength/Tone: Normal Gait/Station: Other (Did not observe patient's gait.) Psychiatric Findings - Problem List ([place] 1, 2,3) (1) Alcohol dependence with uncomplicated withdrawal Current Visit: Yes Status: Acute (2) Alcohol dependence Current Visit: Yes Status: Acute (3) Methadone maintenance therapy patient Current Visit: Yes Status: Chronic (4) Opioid dependence on agonist therapy Current Visit: Yes Status: Chronic (5) Nicotine dependence Current Visit: Yes Status: Chronic Qualifiers: Nicotine product type: cigarettes Substance use status: uncomplicated Qualified Code(s): F17.210 - Nicotine dependence, cigarettes, uncomplicated (6) Cocaine dependence Current Visit: Yes Status: Acute (7) Substance-induced sleep disorder Current Visit: Yes Status: Acute (8) Substance induced mood disorder Current Visit: Yes Status: Acute - Initial Treatment Plan Initial Treatment Plan: Psychoeducation provided. Detoxification in progress. Seroquel 50mg qhs ordered for insomnia. Chart reviewed. Benefits and side effects discussed. Verbal consent given. Will continue to monitor.
[2017-06-18 18:56] LABS: URINE APPEARANCE SLCLOUDY; URINE BILIRUBIN NEGATIVE (NEGATIVE); URINE BLOOD NEGATIVE (NEGATIVE); URINE COLOR YELLOW; URINE GLUCOSE (UA) NEGATIVE (NEGATIVE); URINE KETONE NEGATIVE (NEGATIVE); URINE LEUK ESTERASE NEGATIVE (NEGATIVE); URINE NITRITE NEGATIVE (NEGATIVE); URINE PROTEIN NEGATIVE (NEGATIVE); URINE UROBILINOGEN NEGATIVE mg/dL (0.2-1.0)
[2017-06-18] MEDS: diazePAM 5 MG TABLET PO SCH (22:23)
[2017-06-18] MEDS: THIAMINE HCL 100 MG TABLET (FP) PO SCH (22:23)
[2017-06-18] MEDS: QUEtiapine FUMARATE 50 MG TABLET PO SCH (22:23)
[2017-06-19] MEDS: diazePAM 5 MG TABLET PO SCH ×3 (05:45→22:35)
[2017-06-19 09:55] LABS: HEMATOCRIT 40.5 % (35.4-49); HEMOGLOBIN 12.9 GM/dL (11.7-16.9); MCH 29.5 pg (25.7-33.7); MCHC 31.9 g/dl (32.0-35.9); MEAN CELL VOLUME 92.6 fl (80-96); MEAN PLT VOLUME 8.9 fl (7.5-11.1); PLATELET COUNT 279 K/MM3 (134-434); RBC 4.37 M/mm3 (4.00-5.60); RDW 13.9 % (11.9-15.9)
[2017-06-19 09:58] LABS: CHLORIDE 103 mmol/L (98-107); POTASSIUM 4.3 mmol/L (3.5-5.1); SODIUM 138 mmol/L (136-145)
[2017-06-19 10:13] LABS: ALBUMIN 3.2 g/dl (3.4-5.0); ALK PHOS 77 U/L (45-117); ANION GAP 5 (8-16); BILIRUBIN,TOTAL 0.6 mg/dL (0.2-1.0); BLOOD UREA NITROGEN 12 mg/dL (7-18); CALCIUM 8.6 mg/dL (8.5-10.1); CO2 30 mmol/L (21-32); CREATININE 1.1 mg/dL (0.7-1.3); GLUCOSE,RANDOM 88 mg/dL (74-106); SGOT/AST 25 U/L (15-37); SGPT/ALT 49 U/L (12-78); TOT PROT 6.6 g/dl (6.4-8.2)
[2017-06-19] MEDS ORDERED: METHADONE HCL 10 MG TABLET PO SCH (10:15)
[2017-06-19] MEDS: PRENATAL VITAMINS W/ FOLIC ACID TABLET (FP) PO SCH (10:30)
[2017-06-19] MEDS ORDERED: METHADONE HCL 40 MG DISPERSABLE TABLET ONE (10:32)
[2017-06-19] MEDS: NICOTINE 21 MG/24 HOURS TOPICAL PATCH TD SCH (10:32)
[2017-06-19] MEDS ORDERED: METHADONE HCL 10 MG TABLET ONE (10:33)
[2017-06-19] MEDS: METHADONE 80 MG, METHADONE 30 MG PO SCH (10:33)
--- NOTE | 2017-06-19 13:13 | EKG ---
Test Reason : Blood Pressure : / mmHG Vent. Rate : 057 BPM Atrial Rate : 057 BPM P-R Int : 124 ms QRS Dur : 098 ms QT Int : 448 ms P-R-T Axes : 071 068 035 degrees QTc Int : 436 ms SINUS BRADYCARDIA OTHERWISE NORMAL ECG WHEN COMPARED WITH ECG OF 18-APR-2017 19:27, NO SIGNIFICANT CHANGE WAS FOUND Confirmed by DHRUV CHAU MD ([id number]) on 06/19/2017 1:12:41 PM Referred By: Confirmed By:DHRUV CHAU MD
--- NOTE | 2017-06-19 13:50 | PN ---
S CIWA - CIWA Score Nausea/Vomitin Muscle Tremors: None Anxiety: 4-Mod. Anxious/Guarded Agitation: 4-Moderately Restless Paroxysmal Sweats: 4-Forehead w/Sweat Beads Orientation: 0-Oriented Tacttile Disturbances: 1-Very Mild Itch/Numbness Auditory Disturbances: 0-None Visual Disturbances: 0-None Headache: 3-Moderate CIWA-Ar Total Score: 21 BHS Progress Note (SOAP) Subjective: Headache, stomach ache, interrupted sleep, sweating, chills, n/v (vomited x 1 this morning) Objective: 06/19/17 13:50 Last Vital Signs Temp Pulse Resp BP Pulse Ox 97.7 F 77 18 138/94 06/19/17 13:46 06/19/17 13:46 06/19/17 13:46 06/19/17 13:46 Laboratory Tests 06/18/17 06/19/17 06/19/17 18:15 06:07 06:07 WBC 8.0 RBC 4.37 Hgb 12.9 Hct 40.5 MCV 92.6 MCH 29.5 MCHC 31.9 L RDW 13.9 Plt Count 279 MPV 8.9 Sodium 138 Potassium 4.3 Chloride 103 Carbon Dioxide 30 Anion Gap 5 L BUN 12 D Creatinine 1.1 D Creat Clearance w eGFR > 60 Random Glucose 88 Calcium 8.6 Total Bilirubin 0.6 D AST 25 D ALT 49 D Alkaline Phosphatase 77 D Total Protein 6.6 Albumin 3.2 L Urine Color Yellow Urine Appearance Slcloudy Urine pH 5.0 Ur Specific [place] 1.017 Urine Protein Negative Urine Glucose (UA) Negative Urine Ketones Negative Urine Blood Negative Urine Nitrite Negative Urine Bilirubin Negative Urine Urobilinogen Negative Ur Leukocyte Esterase Negative RPR Titer 06/19/17 06:07 WBC RBC Hgb Hct MCV MCH MCHC RDW Plt Count MPV Sodium Potassium Chloride Carbon Dioxide Anion Gap BUN Creatinine Creat Clearance w eGFR Random Glucose Calcium Total Bilirubin AST ALT Alkaline Phosphatase Total Protein Albumin Urine Color Urine Appearance Urine pH Ur Specific [place] Urine Protein Urine Glucose (UA) Urine Ketones Urine Blood Urine Nitrite Urine Bilirubin Urine Urobilinogen Ur Leukocyte Esterase RPR Titer Nonreactive Labs noted Assessment: 06/19/17 13:52 Withdrawal symptoms Plan: Continue detox Encouraged to drink lots of water
[2017-06-19] MEDS: IPRATROPIUM BR 0.02% 0.5 MG/2.5 ML VIAL.NEB. NEB PRN (15:51)
[2017-06-19] MEDS: QUEtiapine FUMARATE 50 MG TABLET PO SCH (22:34)
[2017-06-19] MEDS: THIAMINE HCL 100 MG TABLET (FP) PO SCH (22:35)
[2017-06-20] MEDS ORDERED: METHADONE HCL 40 MG DISPERSABLE TABLET ONE (05:19)
[2017-06-20] MEDS ORDERED: METHADONE HCL 10 MG TABLET ONE (05:20)
[2017-06-20] MEDS: METHADONE 80 MG, METHADONE 30 MG PO SCH (05:22)
[2017-06-20] MEDS: NICOTINE 21 MG/24 HOURS TOPICAL PATCH TD SCH (10:21)
[2017-06-20] MEDS: diazePAM 5 MG TABLET PO SCH ×2 (10:21→22:50)
[2017-06-20] MEDS: PRENATAL VITAMINS W/ FOLIC ACID TABLET (FP) PO SCH (10:21)
--- NOTE | 2017-06-20 13:26 | PN ---
S CIWA - CIWA Score Nausea/Vomitin-Int. Nausea w/Dry Heave Muscle Tremors: 3 Anxiety: 4-Mod. Anxious/Guarded Agitation: 4-Moderately Restless Paroxysmal Sweats: 4-Forehead w/Sweat Beads Orientation: 0-Oriented Tacttile Disturbances: 1-Very Mild Itch/Numbness Auditory Disturbances: 0-None Visual Disturbances: 0-None Headache: 2-Mild CIWA-Ar Total Score: 22 BHS Progress Note (SOAP) Subjective: Sweating, nausea, headache, stomach ache, loose stool, interrupted sleep, poor appetite Objective: 06/20/17 13:23 Last Vital Signs Temp Pulse Resp BP Pulse Ox 97.5 F L 79 18 132/92 06/20/17 10:00 06/20/17 10:00 06/20/17 10:00 06/20/17 10:00 Laboratory Tests 06/18/17 06/19/17 06/19/17 18:15 06:07 06:07 WBC 8.0 RBC 4.37 Hgb 12.9 Hct 40.5 MCV 92.6 MCH 29.5 MCHC 31.9 L RDW 13.9 Plt Count 279 MPV 8.9 Sodium 138 Potassium 4.3 Chloride 103 Carbon Dioxide 30 Anion Gap 5 L BUN 12 D Creatinine 1.1 D Creat Clearance w eGFR > 60 Random Glucose 88 Calcium 8.6 Total Bilirubin 0.6 D AST 25 D ALT 49 D Alkaline Phosphatase 77 D Total Protein 6.6 Albumin 3.2 L Urine Color Yellow Urine Appearance Slcloudy Urine pH 5.0 Ur Specific [place] 1.017 Urine Protein Negative Urine Glucose (UA) Negative Urine Ketones Negative Urine Blood Negative Urine Nitrite Negative Urine Bilirubin Negative Urine Urobilinogen Negative Ur Leukocyte Esterase Negative RPR Titer 06/19/17 06:07 WBC RBC Hgb Hct MCV MCH MCHC RDW Plt Count MPV Sodium Potassium Chloride Carbon Dioxide Anion Gap BUN Creatinine Creat Clearance w eGFR Random Glucose Calcium Total Bilirubin AST ALT Alkaline Phosphatase Total Protein Albumin Urine Color Urine Appearance Urine pH Ur Specific [place] Urine Protein Urine Glucose (UA) Urine Ketones Urine Blood Urine Nitrite Urine Bilirubin Urine Urobilinogen Ur Leukocyte Esterase RPR Titer Nonreactive Labs noted Assessment: 06/20/17 13:25 Withdrawal symptoms Plan: Continue detox Encouraged to drink lots of water for hydration
[2017-06-20] MEDS ORDERED: LIDOCAINE VISCOUS 2% ORAL/TOP 20 ML UNIT-DOSE CUP MM PRN (18:50)
[2017-06-20] MEDS ORDERED: IBUPROFEN 400 MG TABLET (FP) PO PRN (21:17)
[2017-06-20] MEDS: THIAMINE HCL 100 MG TABLET (FP) PO SCH (22:50)
[2017-06-20] MEDS: QUEtiapine FUMARATE 50 MG TABLET PO SCH (22:50)
[2017-06-21] MEDS ORDERED: METHADONE HCL 40 MG DISPERSABLE TABLET ONE (04:40)
[2017-06-21] MEDS ORDERED: METHADONE HCL 10 MG TABLET ONE (04:40)
[2017-06-21] MEDS: METHADONE 80 MG, METHADONE 30 MG PO SCH (06:19)
[2017-06-21] MEDS: diazePAM 5 MG TABLET PO SCH ×2 (10:54→22:22)
[2017-06-21] MEDS: PRENATAL VITAMINS W/ FOLIC ACID TABLET (FP) PO SCH (10:54)
[2017-06-21] MEDS: NICOTINE 21 MG/24 HOURS TOPICAL PATCH TD SCH (10:55)
--- NOTE | 2017-06-21 14:09 | PN ---
S Progress Note (SOAP) Subjective: Withdrawal sx c/o pain to the back of his R knee s/p cyst, requesting cane for ambulation Objective: Vital Signs Temperature 97.7 F 06/21/17 13:43 Pulse Rate 78 06/21/17 13:43 Respiratory Rate 20 06/21/17 13:43 Blood Pressure 137/101 06/21/17 13:43 O2 Sat by Pulse Oximetry (%) Laboratory Last Values WBC 8.0 K/mm3 (4.0-10.0) 06/19/17 06:07 RBC 4.37 M/mm3 (4.00-5.60) 06/19/17 06:07 Hgb 12.9 GM/dL (11.7-16.9) 06/19/17 06:07 Hct 40.5 % (35.4-49) 06/19/17 06:07 MCV 92.6 fl (80-96) 06/19/17 06:07 MCH 29.5 pg (25.7-33.7) 06/19/17 06:07 MCHC 31.9 g/dl (32.0-35.9) L 06/19/17 06:07 RDW 13.9 % (11.9-15.9) 06/19/17 06:07 Plt Count 279 K/MM3 (134-434) 06/19/17 06:07 MPV 8.9 fl (7.5-11.1) 06/19/17 06:07 Sodium 138 mmol/L (136-145) 06/19/17 06:07 Potassium 4.3 mmol/L (3.5-5.1) 06/19/17 06:07 Chloride 103 mmol/L (98-107) 06/19/17 06:07 Carbon Dioxide 30 mmol/L (21-32) 06/19/17 06:07 Anion Gap 5 (8-16) L 06/19/17 06:07 BUN 12 mg/dL (7-18) D 06/19/17 06:07 Creatinine 1.1 mg/dL (0.7-1.3) D 06/19/17 06:07 Creat Clearance w eGFR > 60 (>60) 06/19/17 06:07 Random Glucose 88 mg/dL (74-106) 06/19/17 06:07 Calcium 8.6 mg/dL (8.5-10.1) 06/19/17 06:07 Total Bilirubin 0.6 mg/dL (0.2-1.0) D 06/19/17 06:07 AST 25 U/L (15-37) D 06/19/17 06:07 ALT 49 U/L (12-78) D 06/19/17 06:07 Alkaline Phosphatase 77 U/L (45-117) D 06/19/17 06:07 Total Protein 6.6 g/dl (6.4-8.2) 06/19/17 06:07 Albumin 3.2 g/dl (3.4-5.0) L 06/19/17 06:07 Urine Color Yellow 06/18/17 18:15 Urine Appearance Slcloudy 06/18/17 18:15 Urine pH 5.0 (5.0-8.0) 06/18/17 18:15 Ur Specific [place] 1.017 (1.001-1.035) 06/18/17 18:15 Urine Protein Negative (NEGATIVE) 06/18/17 18:15 Urine Glucose (UA) Negative (NEGATIVE) 06/18/17 18:15 Urine Ketones Negative (NEGATIVE) 06/18/17 18:15 Urine Blood Negative (NEGATIVE) 06/18/17 18:15 Urine Nitrite Negative (NEGATIVE) 06/18/17 18:15 Urine Bilirubin Negative (NEGATIVE) 06/18/17 18:15 Urine Urobilinogen Negative mg/dL (0.2-1.0) 06/18/17 18:15 Ur Leukocyte Esterase Negative (NEGATIVE) 06/18/17 18:15 RPR Titer Nonreactive (NONREACTIVE) 06/19/17 06:07 labs noted Assessment: 06/21/17 14:08 withdrawal symptoms Plan: continue detox cane ordered
[2017-06-21] MEDS: IPRATROPIUM BR 0.02% 0.5 MG/2.5 ML VIAL.NEB. NEB PRN (16:02)
[2017-06-21] MEDS: IBUPROFEN 600 MG TABLET (FP) PO PRN (19:40)
[2017-06-21] MEDS ORDERED: KETOROLAC TROMETHAMINE 30 MG/1 ML VIAL IM PRN (21:00)
[2017-06-21] MEDS: QUEtiapine FUMARATE 50 MG TABLET PO SCH (22:21)
[2017-06-21] MEDS: THIAMINE HCL 100 MG TABLET (FP) PO SCH (22:21)
[2017-06-22] MEDS: IBUPROFEN 600 MG TABLET (FP) PO PRN (00:40)
[2017-06-22] MEDS: KETOROLAC TROMETHAMINE 30 MG/1 ML VIAL IM PRN ×2 (01:48→08:02)
[2017-06-22] MEDS ORDERED: METHADONE HCL 10 MG TABLET ONE (03:07)
[2017-06-22] MEDS ORDERED: METHADONE HCL 40 MG DISPERSABLE TABLET ONE (03:07)
[2017-06-22] MEDS: METHADONE 80 MG, METHADONE 30 MG PO SCH (05:57)
--- NOTE | 2017-06-22 08:47 | DS ---
[facility] Detox Discharge Summary Admission Date: 06/18/17 Discharge Date: 06/22/17 - History Present History: Alcohol Dependence, Cocaine Dependence, MMTP Pertinent Past History: cardiac history CHF Borderline DM Asthma/COPD Seizures Hypercholestremia - Physical Exam Results Vital Signs: Vital Signs Temperature 97.2 F L 06/22/17 06:00 Pulse Rate 69 06/22/17 06:00 Respiratory Rate 18 06/22/17 06:00 Blood Pressure 130/77 06/22/17 06:00 O2 Sat by Pulse Oximetry (%) Pertinent Admission Physical Exam Findings: withdrawal sx Laboratory Last Values WBC 8.0 K/mm3 (4.0-10.0) 06/19/17 06:07 RBC 4.37 M/mm3 (4.00-5.60) 06/19/17 06:07 Hgb 12.9 GM/dL (11.7-16.9) 06/19/17 06:07 Hct 40.5 % (35.4-49) 06/19/17 06:07 MCV 92.6 fl (80-96) 06/19/17 06:07 MCH 29.5 pg (25.7-33.7) 06/19/17 06:07 MCHC 31.9 g/dl (32.0-35.9) L 06/19/17 06:07 RDW 13.9 % (11.9-15.9) 06/19/17 06:07 Plt Count 279 K/MM3 (134-434) 06/19/17 06:07 MPV 8.9 fl (7.5-11.1) 06/19/17 06:07 Sodium 138 mmol/L (136-145) 06/19/17 06:07 Potassium 4.3 mmol/L (3.5-5.1) 06/19/17 06:07 Chloride 103 mmol/L (98-107) 06/19/17 06:07 Carbon Dioxide 30 mmol/L (21-32) 06/19/17 06:07 Anion Gap 5 (8-16) L 06/19/17 06:07 BUN 12 mg/dL (7-18) D 06/19/17 06:07 Creatinine 1.1 mg/dL (0.7-1.3) D 06/19/17 06:07 Creat Clearance w eGFR > 60 (>60) 06/19/17 06:07 Random Glucose 88 mg/dL (74-106) 06/19/17 06:07 Calcium 8.6 mg/dL (8.5-10.1) 06/19/17 06:07 Total Bilirubin 0.6 mg/dL (0.2-1.0) D 06/19/17 06:07 AST 25 U/L (15-37) D 06/19/17 06:07 ALT 49 U/L (12-78) D 06/19/17 06:07 Alkaline Phosphatase 77 U/L (45-117) D 06/19/17 06:07 Total Protein 6.6 g/dl (6.4-8.2) 06/19/17 06:07 Albumin 3.2 g/dl (3.4-5.0) L 06/19/17 06:07 Urine Color Yellow 06/18/17 18:15 Urine Appearance Slcloudy 06/18/17 18:15 Urine pH 5.0 (5.0-8.0) 06/18/17 18:15 Ur Specific [place] 1.017 (1.001-1.035) 06/18/17 18:15 Urine Protein Negative (NEGATIVE) 06/18/17 18:15 Urine Glucose (UA) Negative (NEGATIVE) 06/18/17 18:15 Urine Ketones Negative (NEGATIVE) 06/18/17 18:15 Urine Blood Negative (NEGATIVE) 06/18/17 18:15 Urine Nitrite Negative (NEGATIVE) 06/18/17 18:15 Urine Bilirubin Negative (NEGATIVE) 06/18/17 18:15 Urine Urobilinogen Negative mg/dL (0.2-1.0) 06/18/17 18:15 Ur Leukocyte Esterase Negative (NEGATIVE) 06/18/17 18:15 RPR Titer Nonreactive (NONREACTIVE) 06/19/17 06:07 Labs noted - Treatment Hospital Course: Detox Protocol Followed, Detoxed Safely, Responded well, Discharged Condition Good, Rehab Referral Accepted Patient has Accepted a Rehab Referral to: [facility] Rehab - Medication Discharge Medications: Ambulatory Orders Budesonide/Formeterol Fumarate [SYMBICORT 80/4.5mcg -] 2 inh PO BID #1 inhaler 05/06/17 Methadone [Dolophine -] 110 mg PO DAILY 06/18/17 Quetiapine Fumarate [Seroquel] 50 mg PO HS 06/18/17 Zolpidem Tartrate [Ambien] 10 mg PO HS 06/18/17 - Diagnosis (1) Alcohol dependence with uncomplicated withdrawal Current Visit: Yes Status: Acute (2) Alcohol dependence Current Visit: Yes Status: Acute (3) Cocaine dependence Current Visit: Yes Status: Acute (4) Substance induced mood disorder Current Visit: Yes Status: Acute (5) Substance-induced sleep disorder Current Visit: Yes Status: Acute (6) Asthma Current Visit: Yes Status: Chronic Qualifiers: Asthma severity: mild Asthma persistence: persistent Asthma complication type: uncomplicated Qualified Code(s): J45.30 - Mild persistent asthma, uncomplicated (7) COPD (chronic obstructive pulmonary disease) Current Visit: Yes Status: Chronic Qualifiers: COPD type: chronic bronchitis Chronic bronchitis type: simple Qualified Code(s): J41.0 - Simple chronic bronchitis (8) History of seizure Current Visit: Yes Status: Chronic (9) Hypercholesterolemia Current Visit: Yes Status: Chronic (10) Methadone maintenance therapy patient Current Visit: Yes Status: Acute (11) Nicotine dependence Current Visit: Yes Status: Acute Qualifiers: Nicotine product type: cigarettes Substance use status: uncomplicated Qualified Code(s): F17.210 - Nicotine dependence, cigarettes, uncomplicated (12) Opioid dependence on agonist therapy Current Visit: Yes Status: Chronic (13) Status post myocardial infarction of inferior wall Current Visit: Yes Status: Chronic (14) Borderline diabetes mellitus Current Visit: Yes Status: Suspected - AMA Did Patient Leave Against Medical Advice: No
[2017-06-22 09:42] VITALS: BP 153/98; PULSE 89; TEMP 98.4
[2017-06-22] MEDS ORDERED: diazePAM 5 MG TABLET PO SCH (10:00)
[2017-06-22] MEDS ORDERED: AMOX TR/POT CLAV 875MG/125MG TABLETS (FP) PO ONE (10:32)
[2017-06-22] MEDS: PRENATAL VITAMINS W/ FOLIC ACID TABLET (FP) PO SCH (10:44)
[2017-06-22] MEDS: NICOTINE 21 MG/24 HOURS TOPICAL PATCH TD SCH (10:45)
[2017-06-22] MEDS ORDERED: MOMETASONE FUROATE 220 MCG/IH INHALER IH SCH ×2 (10:45→22:00)
[2017-06-22] MEDS ORDERED: AMOX TR/POT CLAV 875MG/125MG TABLETS (FP) PO SCH (17:30)
== END 2017-06-22 13:33 | disposition other institution (70) | DRG 773 ==
LOC: YASAS 11:39 → Y6N 16:12
PROVIDERS: ADMIT Internal Medicine; ATTEND Internal Medicine
PROC: HZ2ZZZZ Detoxification Services for Substance Abuse Treatment (ICD-10-PCS; principal; 2017-06-18)
DX: F10.230 Alcohol dependence with withdrawal, uncomplicated (principal); F11.20 Opioid dependence, uncomplicated; F14.20 Cocaine dependence, uncomplicated; F17.210 Nicotine dependence, cigarettes, uncomplicated; F19.24 Other psychoactive substance dependence with psychoactive substance-induced mood disorder; F19.282 Other psychoactive substance dependence with psychoactive substance-induced sleep disorder; J45.30 Mild persistent asthma, uncomplicated; J41.0 Simple chronic bronchitis; E78.00 Pure hypercholesterolemia, unspecified; I25.2 Old myocardial infarction; R73.03 Prediabetes; R76.11 Nonspecific reaction to tuberculin skin test without active tuberculosis; Z86.79 Personal history of other diseases of the circulatory system; Z86.59 Personal history of other mental and behavioral disorders; Z88.8 Allergy status to other drugs, medicaments and biological substances; Z95.5 Presence of coronary angioplasty implant and graft; Z86.69 Personal history of other diseases of the nervous system and sense organs; Z91.013 Allergy to seafood; Z59.0 Homelessness
CPT/HCPCS: 36415; 80053; 81003; 85027; 86593; 93005; 93010; 94640

== ENCOUNTER 2017-06-22 13:49 | Inpatient (IN) | payer OTHER ==
[2017-06-22] MEDS ORDERED: LOPERAMIDE HCL 2 MG CAPSULE PO PRN (14:48)
[2017-06-22] MEDS ORDERED: MAGNESIUM HYDROX 2400MG/30ML ORAL SUSPENSION 30 ML CUP PO PRN (14:48)
[2017-06-22] MEDS ORDERED: MAG HYDROX/AL HYDROX/SIMETH 30 ML UNIT-DOSE CUP PO PRN (14:48)
[2017-06-22] MEDS ORDERED: MAGNESIUM CITRATE 300 ML BOTTLE PO PRN (14:48)
[2017-06-22] MEDS ORDERED: MENTHOL/PHENOL 1 EACH UD MM PRN (14:48)
[2017-06-22] MEDS ORDERED: P-EPHED 60MG/TRIPROLIDI 2.5MG TABLET PO PRN (14:48)
[2017-06-22] MEDS ORDERED: guaiFENesin/D-METHORPHAN HB 10 ML UNIT-DOSE CUPS PO PRN (14:48)
[2017-06-22] MEDS ORDERED: IBUPROFEN 400 MG TABLET (FP) PO PRN ×2 (14:48→14:56)
[2017-06-22] MEDS ORDERED: IPRATROPIUM BR 0.02% 0.5 MG/2.5 ML VIAL.NEB. NEB PRN (14:54)
--- NOTE | 2017-06-22 15:00 | HP ---
[facility] Rehab Assess/Revision - Admission History Admitted to Rehab from: [facility] Date of Admission to Rehab: 06/22/17 - Vital signs Vital Signs: Vital Signs Period Temp Pulse Resp BP Sys/Howell Pulse Ox Last 24 Hr 98.1 F 75 18 142/72 - Findings Detox History & Physical reviewed: Yes Concur with findings: Yes Inpatient Rehab Admission - Initial Determination Are CD services needed?: Yes Free of communicable disease: Yes Not in need of hospitalization: Yes - Rehab Admission Criteria Previous failed treatment: Yes Poor recovery environment: Yes Comorbidities: Yes Lacks judgement: Yes Patient is meeting Inpatient Rehab admission criteria:: Yes
[2017-06-22] MEDS: KETOROLAC TROMETHAMINE 30 MG/1 ML VIAL IM PRN ×2 (16:25→22:29)
[2017-06-22] MEDS: AMOX TR/POT CLAV 875MG/125MG TABLETS (FP) PO SCH (17:02)
[2017-06-22] MEDS: SUVOREXANT 10 MG TABLET PO PRN (21:29)
[2017-06-22] MEDS: THIAMINE HCL 100 MG TABLET (FP) PO SCH (21:30)
[2017-06-22] MEDS: MONTELUKAST NA 10 MG TABLET PO SCH (21:30)
[2017-06-22] MEDS: MOMETASONE FUROATE 220 MCG/IH INHALER IH SCH (21:31)
[2017-06-22] MEDS ORDERED: QUEtiapine FUMARATE 100 MG TABLET (FP) PO SCH (22:00)
[2017-06-23] MEDS: METHADONE HCL 10 MG TABLET PO SCH (06:32)
[2017-06-23] MEDS: ACETAMINOPHEN 325 MG TABLET (FP) PO PRN (06:38)
[2017-06-23] MEDS: LIDOCAINE VISCOUS 2% ORAL/TOP 20 ML UNIT-DOSE CUP MM PRN (06:47)
[2017-06-23] MEDS: AMOX TR/POT CLAV 875MG/125MG TABLETS (FP) PO SCH ×2 (07:04→16:56)
[2017-06-23] MEDS: KETOROLAC TROMETHAMINE 30 MG/1 ML VIAL IM PRN ×3 (08:52→21:01)
[2017-06-23] MEDS: MOMETASONE FUROATE 220 MCG/IH INHALER IH SCH ×2 (09:49→21:23)
[2017-06-23] MEDS: NICOTINE 21 MG/24 HOURS TOPICAL PATCH TD SCH (09:50)
[2017-06-23] MEDS: PRENATAL VITAMINS W/ FOLIC ACID TABLET (FP) PO SCH (09:51)
[2017-06-23] MEDS: MONTELUKAST NA 10 MG TABLET PO SCH (21:23)
[2017-06-23] MEDS: THIAMINE HCL 100 MG TABLET (FP) PO SCH (21:23)
[2017-06-23] MEDS: QUEtiapine FUMARATE 50 MG TABLET PO SCH (21:24)
[2017-06-24] MEDS: KETOROLAC TROMETHAMINE 30 MG/1 ML VIAL IM PRN ×4 (03:26→21:33)
[2017-06-24] MEDS: LIDOCAINE VISCOUS 2% ORAL/TOP 20 ML UNIT-DOSE CUP MM PRN (03:29)
[2017-06-24] MEDS: METHADONE HCL 10 MG TABLET PO SCH (06:22)
[2017-06-24] MEDS: AMOX TR/POT CLAV 875MG/125MG TABLETS (FP) PO SCH ×2 (07:07→16:42)
[2017-06-24] MEDS: MOMETASONE FUROATE 220 MCG/IH INHALER IH SCH ×2 (09:29→21:33)
[2017-06-24] MEDS: NICOTINE 21 MG/24 HOURS TOPICAL PATCH TD SCH (09:30)
[2017-06-24] MEDS: PRENATAL VITAMINS W/ FOLIC ACID TABLET (FP) PO SCH (09:31)
[2017-06-24] MEDS ORDERED: IPRATROPIUM BR 0.02% 0.5 MG/2.5 ML VIAL.NEB. NEB PRN (09:33)
[2017-06-24] MEDS ORDERED: AMMONIUM LACTATE 12% LOTION 225 GM BOTTLE TP PRN (09:34)
[2017-06-24] MEDS ORDERED: FUROSEMIDE 20 MG TABLET (FP) PO ONE (09:35)
--- NOTE | 2017-06-24 10:26 | PN ---
[facility] Progress Note (SOAP) Subjective: Patient c/o swelling of legs (started when he was on 3N but gets worse) and requesting ensure because of poor oral intake. As per patient, he has broken teeth/cavities and it prevents him from eating properly. Patient reports pmhx of [place] x 2 (2000 he had right artery stent and 2001 in which he had cardiac cath and stenting). He reports strong family h/o [place]: paternal grandmother from [place] at age 60; his father had [place] at age 30 and at age 56 from non related cardiac issues; his brother age 28 from [place]; his mother is alive and well living in [place] and they have no relationship. As per patient, he was on beta rick, plavix, lipitor, NTG prn etc but has been noncompliant with his medications for the past 3 years. As per patient, he follows up at [facility] in pulmonary clinic for COPD and also follows up in Cardiology clinic but he hasn't seen any doctor for a long time. Wet Washer Machine educated patient on importance of adhering to his medications and medical appointments. Objective: 06/24/17 10:26 Last Vital Signs Temp Pulse Resp BP Pulse Ox 98.1 F 81 20 127/75 06/24/17 06:43 06/24/17 06:43 06/24/17 06:43 06/24/17 06:43 Laboratory Tests 06/23/17 06:31 POC Glucometer 116 Labs reviewed 06/24/17 10:29 PE: Neuro: A/A/Ox3, uses cane for easier mobility Resp: lungs with good air entry, inspiratory/expiratory wheezing noted CV: s1s2+, apical rate 80 bpm Skin: warm to touch, turgor good Extrem: ppp, +2 pitting edema B/L LE (legs and feet), legs feel tight due to edema Assessment: 06/24/17 10:27 Patient seen for edema B/L LE and COPD Plan: B/L LE edema: lasix 20mg PO x 1 dose Elevate legs on extra pillows while in bed, avoid long standing and elevate legs if sitting for long period of time F/U with Director Non Profit post discharge COPD: atrovent 1 nebulizer Q6h plus 1 nebulizer q4hr prn (mdd 2) Glucerna 1 cup PO TID due to poor oral intake, water pitcher ordered ( encouraged to drink more water for hydration)
[2017-06-24] MEDS: IPRATROPIUM BR 0.02% 0.5 MG/2.5 ML VIAL.NEB. NEB SCH ×2 (12:20→18:00)
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
[2017-06-24] MEDS: IPRATROPIUM BR 0.02% 0.5 MG/2.5 ML VIAL.NEB. NEB PRN (19:32)
[2017-06-24] MEDS: THIAMINE HCL 100 MG TABLET (FP) PO SCH (21:33)
[2017-06-24] MEDS: QUEtiapine FUMARATE 50 MG TABLET PO SCH (21:33)
[2017-06-24] MEDS: MONTELUKAST NA 10 MG TABLET PO SCH (21:33)
[2017-06-24] MEDS: SUVOREXANT 10 MG TABLET PO PRN (21:35)
[2017-06-25] MEDS: IPRATROPIUM BR 0.02% 0.5 MG/2.5 ML VIAL.NEB. NEB SCH ×4 (00:55→18:05)
[2017-06-25] MEDS: KETOROLAC TROMETHAMINE 30 MG/1 ML VIAL IM PRN ×2 (05:00→13:08)
[2017-06-25] MEDS: METHADONE HCL 10 MG TABLET PO SCH (06:15)
[2017-06-25] MEDS: AMOX TR/POT CLAV 875MG/125MG TABLETS (FP) PO SCH ×2 (07:56→17:06)
[2017-06-25] MEDS: NICOTINE 21 MG/24 HOURS TOPICAL PATCH TD SCH (10:00)
[2017-06-25] MEDS: PRENATAL VITAMINS W/ FOLIC ACID TABLET (FP) PO SCH (10:00)
[2017-06-25] MEDS: MOMETASONE FUROATE 220 MCG/IH INHALER IH SCH ×2 (10:01→21:26)
--- NOTE | 2017-06-25 16:40 | PN ---
[facility] Progress Note (SOAP) Subjective: Patient seen for c/o redness to top of left foot and swelling in legs. Patient noted to be standing a lot. He looks much better today and seems more comfortable. Patient has h/o MD and has been noncompliant with his medications. Solid Waste Engineer educated patient on importance of resuming follow up with his ginning operator and meter installer and remover post discharge so that he can be evaluated and started on medications. Objective: 06/25/17 16:37 Last Vital Signs Temp Pulse Resp BP Pulse Ox 98.1 F 77 18 126/75 06/24/17 06:43 06/24/17 10:00 06/25/17 06:44 06/24/17 10:00 PE: Legs/feet swollen; mild redness/dry area to top of left foot Laboratory Tests 06/23/17 06/25/17 06:31 06:14 POC Glucometer 116 185 Labs noted Assessment: 06/25/17 16:38 Patient seen for evaluation of peripheral edema and dryness to left foot Plan: Peripheral edema: avoid long standing, elevate legs while in bed, follow up with your ginning operator post discharge Dryness/erythema to left foot: bacitracin ointment to reddened dry area on top of left foot
[2017-06-25] MEDS: MONTELUKAST NA 10 MG TABLET PO SCH (21:26)
[2017-06-25] MEDS: BACITRACIN 0.9 GM PACKET TP SCH (21:26)
[2017-06-25] MEDS: QUEtiapine FUMARATE 50 MG TABLET PO SCH (21:26)
[2017-06-25] MEDS: SUVOREXANT 10 MG TABLET PO PRN (21:29)
[2017-06-25] MEDS: THIAMINE HCL 100 MG TABLET (FP) PO SCH (21:29)
[2017-06-26] MEDS: IPRATROPIUM BR 0.02% 0.5 MG/2.5 ML VIAL.NEB. NEB SCH ×3 (00:24→12:00)
[2017-06-26] MEDS: LIDOCAINE VISCOUS 2% ORAL/TOP 20 ML UNIT-DOSE CUP MM PRN (02:00)
[2017-06-26] MEDS: ACETAMINOPHEN 325 MG TABLET (FP) PO PRN (02:00)
[2017-06-26] MEDS: METHADONE HCL 10 MG TABLET PO SCH (06:17)
[2017-06-26] MEDS: AMOX TR/POT CLAV 875MG/125MG TABLETS (FP) PO SCH ×2 (07:08→17:05)
[2017-06-26] MEDS: IPRATROPIUM BR 0.02% 0.5 MG/2.5 ML VIAL.NEB. NEB PRN (09:28)
[2017-06-26] MEDS: PRENATAL VITAMINS W/ FOLIC ACID TABLET (FP) PO SCH (10:13)
[2017-06-26] MEDS: BACITRACIN 0.9 GM PACKET TP SCH ×2 (10:13→21:25)
[2017-06-26] MEDS: NICOTINE 21 MG/24 HOURS TOPICAL PATCH TD SCH (10:14)
[2017-06-26] MEDS: MOMETASONE FUROATE 220 MCG/IH INHALER IH SCH ×2 (10:15→22:33)
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
[2017-06-26] MEDS ORDERED: IPRATROPIUM BR 0.02% 0.5 MG/2.5 ML VIAL.NEB. NEB PRN (13:12)
[2017-06-26] MEDS: PANTOPRAZOLE 40 MG TABLET (FP) PO SCH (15:21)
[2017-06-26] MEDS: FUROSEMIDE 20 MG TABLET (FP) PO SCH (15:22)
[2017-06-26] MEDS: TOLNAFTATE 1% CREAM 15 GM TUBE TP SCH ×2 (15:22→22:34)
[2017-06-26] MEDS: NAPROXEN 500 MG TABLET (FP) PO SCH ×2 (15:22→21:25)
[2017-06-26] MEDS: MAG HYDROX/ALH/SMC/DPHA/LIDO 240 ML MOUTHWASH MM SCH (17:06)
[2017-06-26] MEDS: THIAMINE HCL 100 MG TABLET (FP) PO SCH (21:25)
[2017-06-26] MEDS: QUEtiapine FUMARATE 50 MG TABLET PO SCH (21:25)
[2017-06-26] MEDS: MONTELUKAST NA 10 MG TABLET PO SCH (21:26)
[2017-06-27] MEDS: MAG HYDROX/ALH/SMC/DPHA/LIDO 240 ML MOUTHWASH MM SCH ×4 (00:42→17:44)
[2017-06-27] MEDS: SUVOREXANT 10 MG TABLET PO PRN ×2 (02:09→21:33)
[2017-06-27] MEDS: METHADONE HCL 10 MG TABLET PO SCH (06:26)
[2017-06-27] MEDS: AMOX TR/POT CLAV 875MG/125MG TABLETS (FP) PO SCH ×2 (07:08→17:17)
[2017-06-27] MEDS: BACITRACIN 0.9 GM PACKET TP SCH ×2 (10:10→21:30)
[2017-06-27] MEDS: MOMETASONE FUROATE 220 MCG/IH INHALER IH SCH ×2 (10:10→21:33)
[2017-06-27] MEDS: NAPROXEN 500 MG TABLET (FP) PO SCH ×2 (10:11→21:30)
[2017-06-27] MEDS: FUROSEMIDE 20 MG TABLET (FP) PO SCH (10:11)
[2017-06-27] MEDS: TOLNAFTATE 1% CREAM 15 GM TUBE TP SCH ×2 (10:11→21:39)
[2017-06-27] MEDS: NICOTINE 21 MG/24 HOURS TOPICAL PATCH TD SCH (10:11)
[2017-06-27] MEDS: PRENATAL VITAMINS W/ FOLIC ACID TABLET (FP) PO SCH (10:11)
[2017-06-27] MEDS: PANTOPRAZOLE 40 MG TABLET (FP) PO SCH (10:11)
[2017-06-27] MEDS ORDERED: MAGNESIUM SULFATE 16 OZ CRYSTALS TP ONE (11:30)
[2017-06-27] MEDS: MAGNESIUM SULFATE 16 OZ CRYSTALS TP SCH ×2 (13:36→14:46)
[2017-06-27] MEDS ORDERED: IPRATROPIUM BR 0.02% 0.5 MG/2.5 ML VIAL.NEB. NEB ONE (14:32)
[2017-06-27] MEDS: QUEtiapine FUMARATE 50 MG TABLET PO SCH (21:30)
[2017-06-27] MEDS: MONTELUKAST NA 10 MG TABLET PO SCH (21:30)
[2017-06-27] MEDS: THIAMINE HCL 100 MG TABLET (FP) PO SCH (21:31)
[2017-06-27] MEDS: LIDOCAINE VISCOUS 2% ORAL/TOP 20 ML UNIT-DOSE CUP MM PRN (22:35)
[2017-06-28] MEDS: MAG HYDROX/ALH/SMC/DPHA/LIDO 240 ML MOUTHWASH MM SCH ×4 (00:50→17:07)
[2017-06-28] MEDS: METHADONE HCL 10 MG TABLET PO SCH (06:40)
[2017-06-28] MEDS: AMOX TR/POT CLAV 875MG/125MG TABLETS (FP) PO SCH ×2 (07:08→17:06)
[2017-06-28] MEDS: NAPROXEN 500 MG TABLET (FP) PO SCH ×2 (09:23→21:32)
[2017-06-28] MEDS: BACITRACIN 0.9 GM PACKET TP SCH ×2 (09:24→21:31)
[2017-06-28] MEDS: PRENATAL VITAMINS W/ FOLIC ACID TABLET (FP) PO SCH (09:24)
[2017-06-28] MEDS: MOMETASONE FUROATE 220 MCG/IH INHALER IH SCH ×2 (09:24→21:31)
[2017-06-28] MEDS: FUROSEMIDE 20 MG TABLET (FP) PO SCH (09:24)
[2017-06-28] MEDS: PANTOPRAZOLE 40 MG TABLET (FP) PO SCH (09:25)
[2017-06-28] MEDS: NICOTINE 21 MG/24 HOURS TOPICAL PATCH TD SCH (09:25)
[2017-06-28] MEDS: MAGNESIUM SULFATE 16 OZ CRYSTALS TP SCH ×2 (10:48→10:49)
[2017-06-28] MEDS: TOLNAFTATE 1% CREAM 15 GM TUBE TP SCH ×2 (10:49→21:32)
[2017-06-28] MEDS: QUEtiapine FUMARATE 50 MG TABLET PO SCH (21:32)
[2017-06-28] MEDS: THIAMINE HCL 100 MG TABLET (FP) PO SCH (21:32)
[2017-06-28] MEDS: MONTELUKAST NA 10 MG TABLET PO SCH (21:32)
[2017-06-28] MEDS: SUVOREXANT 10 MG TABLET PO PRN (21:33)
[2017-06-29] MEDS: MAG HYDROX/ALH/SMC/DPHA/LIDO 240 ML MOUTHWASH MM SCH ×3 (00:50→17:48)
[2017-06-29] MEDS ORDERED: METHADONE HCL 10 MG TABLET ONE (06:46)
[2017-06-29] MEDS: METHADONE 80 MG, METHADONE 30 MG PO SCH (06:47)
[2017-06-29] MEDS ORDERED: METHADONE HCL 40 MG DISPERSABLE TABLET ONE (06:47)
[2017-06-29] MEDS: AMOX TR/POT CLAV 875MG/125MG TABLETS (FP) PO SCH (07:19)
[2017-06-29] MEDS: PRENATAL VITAMINS W/ FOLIC ACID TABLET (FP) PO SCH (09:49)
[2017-06-29] MEDS: FUROSEMIDE 20 MG TABLET (FP) PO SCH (09:49)
[2017-06-29] MEDS: MOMETASONE FUROATE 220 MCG/IH INHALER IH SCH ×2 (09:49→21:30)
[2017-06-29] MEDS: BACITRACIN 0.9 GM PACKET TP SCH ×2 (09:49→21:29)
[2017-06-29] MEDS: PANTOPRAZOLE 40 MG TABLET (FP) PO SCH (09:49)
[2017-06-29] MEDS: TOLNAFTATE 1% CREAM 15 GM TUBE TP SCH ×2 (09:49→21:30)
[2017-06-29] MEDS: NAPROXEN 500 MG TABLET (FP) PO SCH ×2 (09:49→21:29)
[2017-06-29] MEDS: NICOTINE 21 MG/24 HOURS TOPICAL PATCH TD SCH (09:50)
[2017-06-29] MEDS: MAGNESIUM SULFATE 16 OZ CRYSTALS TP SCH ×2 (09:50→11:59)
[2017-06-29] MEDS: NICOTINE POLACRILEX 2 MG GUM BUC PRN (09:51)
[2017-06-29] MEDS: QUEtiapine FUMARATE 50 MG TABLET PO SCH (21:29)
[2017-06-29] MEDS: THIAMINE HCL 100 MG TABLET (FP) PO SCH (21:29)
[2017-06-29] MEDS: MONTELUKAST NA 10 MG TABLET PO SCH (21:29)
[2017-06-29] MEDS: SUVOREXANT 10 MG TABLET PO SCH (22:27)
[2017-06-30] MEDS: MAG HYDROX/ALH/SMC/DPHA/LIDO 240 ML MOUTHWASH MM SCH ×5 (01:06→18:00)
[2017-06-30] MEDS ORDERED: METHADONE HCL 10 MG TABLET ONE (04:07)
[2017-06-30] MEDS ORDERED: METHADONE HCL 40 MG DISPERSABLE TABLET ONE (04:08)
[2017-06-30] MEDS: METHADONE 80 MG, METHADONE 30 MG PO SCH (06:33)
[2017-06-30] MEDS: IPRATROPIUM BR 0.02% 0.5 MG/2.5 ML VIAL.NEB. NEB PRN (06:57)
[2017-06-30] MEDS: MOMETASONE FUROATE 220 MCG/IH INHALER IH SCH ×2 (10:03→21:15)
[2017-06-30] MEDS: BACITRACIN 0.9 GM PACKET TP SCH ×2 (10:03→21:14)
[2017-06-30] MEDS: MAGNESIUM SULFATE 16 OZ CRYSTALS TP SCH (10:04)
[2017-06-30] MEDS: NAPROXEN 500 MG TABLET (FP) PO SCH ×2 (10:06→21:13)
[2017-06-30] MEDS: FUROSEMIDE 20 MG TABLET (FP) PO SCH (10:06)
[2017-06-30] MEDS: PANTOPRAZOLE 40 MG TABLET (FP) PO SCH (10:06)
[2017-06-30] MEDS: PRENATAL VITAMINS W/ FOLIC ACID TABLET (FP) PO SCH (10:06)
[2017-06-30] MEDS: NICOTINE 21 MG/24 HOURS TOPICAL PATCH TD SCH (10:07)
[2017-06-30] MEDS: TOLNAFTATE 1% CREAM 15 GM TUBE TP SCH ×2 (10:07→21:15)
[2017-06-30] MEDS: NICOTINE POLACRILEX 2 MG GUM BUC PRN (10:08)
[2017-06-30] MEDS: QUEtiapine FUMARATE 50 MG TABLET PO SCH (21:13)
[2017-06-30] MEDS: SUVOREXANT 10 MG TABLET PO SCH (21:13)
[2017-06-30] MEDS: MONTELUKAST NA 10 MG TABLET PO SCH (21:13)
[2017-06-30] MEDS: THIAMINE HCL 100 MG TABLET (FP) PO SCH (21:13)
[2017-07-01] MEDS ORDERED: METHADONE HCL 10 MG TABLET ONE (04:18)
[2017-07-01] MEDS ORDERED: METHADONE HCL 40 MG DISPERSABLE TABLET ONE (04:19)
[2017-07-01] MEDS: METHADONE 80 MG, METHADONE 30 MG PO SCH (06:07)
[2017-07-01] MEDS: MAG HYDROX/ALH/SMC/DPHA/LIDO 240 ML MOUTHWASH MM SCH ×4 (06:08→17:14)
[2017-07-01] MEDS: NAPROXEN 500 MG TABLET (FP) PO SCH ×2 (09:35→21:30)
[2017-07-01] MEDS: PANTOPRAZOLE 40 MG TABLET (FP) PO SCH (09:35)
[2017-07-01] MEDS: BACITRACIN 0.9 GM PACKET TP SCH ×2 (09:35→21:30)
[2017-07-01] MEDS: PRENATAL VITAMINS W/ FOLIC ACID TABLET (FP) PO SCH (09:35)
[2017-07-01] MEDS: FUROSEMIDE 20 MG TABLET (FP) PO SCH (09:35)
[2017-07-01] MEDS: MOMETASONE FUROATE 220 MCG/IH INHALER IH SCH ×2 (09:36→21:30)
[2017-07-01] MEDS: NICOTINE 21 MG/24 HOURS TOPICAL PATCH TD SCH (09:36)
[2017-07-01] MEDS: TOLNAFTATE 1% CREAM 15 GM TUBE TP SCH ×2 (09:37→21:31)
[2017-07-01] MEDS: MAGNESIUM SULFATE 16 OZ CRYSTALS TP SCH (09:38)
[2017-07-01] MEDS: NICOTINE POLACRILEX 2 MG GUM BUC PRN (09:41)
[2017-07-01] MEDS: IPRATROPIUM BR 0.02% 0.5 MG/2.5 ML VIAL.NEB. NEB PRN (19:23)
[2017-07-01] MEDS: MONTELUKAST NA 10 MG TABLET PO SCH (21:30)
[2017-07-01] MEDS: THIAMINE HCL 100 MG TABLET (FP) PO SCH (21:30)
[2017-07-01] MEDS: SUVOREXANT 10 MG TABLET PO SCH (21:30)
[2017-07-01] MEDS: QUEtiapine FUMARATE 50 MG TABLET PO SCH (21:30)
[2017-07-02] MEDS: MAG HYDROX/ALH/SMC/DPHA/LIDO 240 ML MOUTHWASH MM SCH ×5 (01:13→18:30)
[2017-07-02] MEDS ORDERED: METHADONE HCL 40 MG DISPERSABLE TABLET ONE (03:10)
[2017-07-02] MEDS ORDERED: METHADONE HCL 10 MG TABLET ONE (03:10)
[2017-07-02] MEDS: METHADONE 80 MG, METHADONE 30 MG PO SCH (06:05)
[2017-07-02] MEDS: PANTOPRAZOLE 40 MG TABLET (FP) PO SCH (09:36)
[2017-07-02] MEDS: MOMETASONE FUROATE 220 MCG/IH INHALER IH SCH ×2 (09:36→21:06)
[2017-07-02] MEDS: NAPROXEN 500 MG TABLET (FP) PO SCH ×2 (09:36→21:05)
[2017-07-02] MEDS: FUROSEMIDE 20 MG TABLET (FP) PO SCH (09:36)
[2017-07-02] MEDS: PRENATAL VITAMINS W/ FOLIC ACID TABLET (FP) PO SCH (09:36)
[2017-07-02] MEDS: BACITRACIN 0.9 GM PACKET TP SCH ×2 (09:36→21:05)
[2017-07-02] MEDS: MAGNESIUM SULFATE 16 OZ CRYSTALS TP SCH (09:37)
[2017-07-02] MEDS: NICOTINE 21 MG/24 HOURS TOPICAL PATCH TD SCH (09:37)
[2017-07-02] MEDS: TOLNAFTATE 1% CREAM 15 GM TUBE TP SCH ×2 (09:38→21:08)
[2017-07-02] MEDS: ACETAMINOPHEN 325 MG TABLET (FP) PO PRN (19:32)
[2017-07-02] MEDS: LIDOCAINE VISCOUS 2% ORAL/TOP 20 ML UNIT-DOSE CUP MM PRN (19:33)
[2017-07-02] MEDS: THIAMINE HCL 100 MG TABLET (FP) PO SCH (21:05)
[2017-07-02] MEDS: QUEtiapine FUMARATE 50 MG TABLET PO SCH (21:05)
[2017-07-02] MEDS: SUVOREXANT 10 MG TABLET PO SCH (21:05)
[2017-07-02] MEDS: MONTELUKAST NA 10 MG TABLET PO SCH (21:05)
[2017-07-03] MEDS: ACETAMINOPHEN 325 MG TABLET (FP) PO PRN ×3 (01:16→17:24)
[2017-07-03] MEDS ORDERED: METHADONE HCL 10 MG TABLET ONE (05:34)
[2017-07-03] MEDS ORDERED: METHADONE HCL 40 MG DISPERSABLE TABLET ONE (05:34)
[2017-07-03] MEDS: METHADONE 80 MG, METHADONE 30 MG PO SCH (06:23)
[2017-07-03] MEDS: LIDOCAINE VISCOUS 2% ORAL/TOP 20 ML UNIT-DOSE CUP MM PRN (06:28)
[2017-07-03] MEDS: MAG HYDROX/ALH/SMC/DPHA/LIDO 240 ML MOUTHWASH MM SCH ×4 (06:29→17:25)
[2017-07-03] MEDS: BACITRACIN 0.9 GM PACKET TP SCH ×2 (09:46→21:05)
[2017-07-03] MEDS: PANTOPRAZOLE 40 MG TABLET (FP) PO SCH (09:46)
[2017-07-03] MEDS: PRENATAL VITAMINS W/ FOLIC ACID TABLET (FP) PO SCH (09:46)
[2017-07-03] MEDS: FUROSEMIDE 20 MG TABLET (FP) PO SCH (09:46)
[2017-07-03] MEDS: MOMETASONE FUROATE 220 MCG/IH INHALER IH SCH ×2 (09:46→21:06)
[2017-07-03] MEDS: NICOTINE 21 MG/24 HOURS TOPICAL PATCH TD SCH (09:47)
[2017-07-03] MEDS: NAPROXEN 500 MG TABLET (FP) PO SCH ×2 (09:47→21:05)
[2017-07-03] MEDS: MAGNESIUM SULFATE 16 OZ CRYSTALS TP SCH (09:47)
[2017-07-03] MEDS: TOLNAFTATE 1% CREAM 15 GM TUBE TP SCH ×2 (09:56→21:07)
[2017-07-03 10:59] VITALS: PULSE 75
[2017-07-03] MEDS: THIAMINE HCL 100 MG TABLET (FP) PO SCH (21:05)
[2017-07-03] MEDS: MONTELUKAST NA 10 MG TABLET PO SCH (21:05)
[2017-07-03] MEDS: QUEtiapine FUMARATE 50 MG TABLET PO SCH (21:05)
[2017-07-03] MEDS: SUVOREXANT 10 MG TABLET PO SCH (21:06)
[2017-07-04] MEDS ORDERED: METHADONE HCL 10 MG TABLET ONE (02:16)
[2017-07-04] MEDS ORDERED: METHADONE HCL 40 MG DISPERSABLE TABLET ONE (02:17)
[2017-07-04] MEDS: METHADONE 80 MG, METHADONE 30 MG PO SCH (06:19)
[2017-07-04 06:45] VITALS: BP 139/84; TEMP 98.4
[2017-07-04] MEDS: MAG HYDROX/ALH/SMC/DPHA/LIDO 240 ML MOUTHWASH MM SCH (09:28)
[2017-07-04] MEDS: NAPROXEN 500 MG TABLET (FP) PO SCH (09:38)
[2017-07-04] MEDS: FUROSEMIDE 20 MG TABLET (FP) PO SCH (09:38)
[2017-07-04] MEDS: PRENATAL VITAMINS W/ FOLIC ACID TABLET (FP) PO SCH (09:38)
[2017-07-04] MEDS: TOLNAFTATE 1% CREAM 15 GM TUBE TP SCH (09:38)
[2017-07-04] MEDS: MOMETASONE FUROATE 220 MCG/IH INHALER IH SCH (09:38)
[2017-07-04] MEDS: BACITRACIN 0.9 GM PACKET TP SCH (09:38)
[2017-07-04] MEDS: PANTOPRAZOLE 40 MG TABLET (FP) PO SCH (09:38)
[2017-07-04] MEDS: NICOTINE 21 MG/24 HOURS TOPICAL PATCH TD SCH (09:38)
[2017-07-04] MEDS: MAGNESIUM SULFATE 16 OZ CRYSTALS TP SCH (09:40)
--- NOTE | 2017-07-04 10:33 | PN ---
Psychiatric Progress Note Vital Signs: Vital Signs Period Temp Pulse Resp BP Sys/Howell Pulse Ox Last 24 Hr 98.4 F 75 18-18 139/84 Date of Session: 07/04/17 Chief Complaint:: Discharge visit HPI: Patient has addressed alcohol, opioid, nicotine dependence comorbid Bipolar disorder. ROS: Bronchial asthma, [place] x2 with stent placement, GERD medically managed. Current Medications: Active Medications Generic Name Dose Route Start Last Admin Trade Name Freq PRN Reason Stop Dose Admin Acetaminophen 650 mg 06/22/17 14:48 07/03/17 17:24 Tylenol - PO 650 mg Q4H PRN Administration FEVER OR PAIN Al Hydroxide/Mg Hydroxide 30 ml 06/22/17 14:48 06/28/17 09:26 Mylanta Oral Suspension - PO 30 ml Q6H PRN Administration DYSPEPSIA Bacitracin 0.9 gm 06/25/17 22:00 07/04/17 09:38 Bacitracin - TP 0.9 gm BID SAUL Administration Eucalyptus/Menthol/Phenol/Sorbitol 1 each 06/22/17 14:48 Cepastat Lozenge - MM Q4H PRN SORE THROAT Furosemide 20 mg 06/26/17 13:54 07/04/17 09:38 Lasix - PO 20 mg DAILY SAUL Administration Guaifenesin 10 ml 06/22/17 14:48 Robitussin Dm - PO Q6H PRN COUGH Ipratropium [place] 1 amp 06/30/17 05:55 07/01/17 19:23 Atrovent 0.02% Nebulizer - NEB 1 amp Q6H PRN Administration WHEEZING Lactic Acid 1 applic 06/24/17 09:34 Lac-Hydrin 12 TP BID PRN DRY SKIN Lidocaine HCl 20 ml 06/22/17 14:53 07/03/17 06:28 Xylocaine 2% Viscous Oral - MM 20 ml Q4HPO PRN Administration ORAL PAIN/MOUTH SORES Lidocaine/Aluminum/Magnesium/Simeth 5 ml 06/26/17 18:00 07/04/17 09:28 Magic Mouthwash *Sjr Formula* - MM Not Given Q6HPO SAUL Loperamide HCl 4 mg 06/22/17 14:48 Imodium - PO Q6H PRN DIARRHEA Magnesium Citrate 300 ml 06/22/17 14:48 Citroma - PO Q48H PRN CONSTIPATION Magnesium Hydroxide 30 ml 06/22/17 14:48 Milk Of Magnesia - PO DAILY PRN CONSTIPATION Magnesium Sulfate 1 applic 06/28/17 10:00 07/04/17 09:40 Epsom Salt - TP Not Given DAILY SAUL Methadone HCl 80 mg/ Methadone 110 mg 06/29/17 06:00 07/04/17 06:19 HCl 30 mg PO 110 mg DAILY@0600 SAUL Administration Mometasone Furoate 1 puff 06/22/17 22:00 07/04/17 09:38 Asmanex 220mcg - IH Not Given BID SAUL Montelukast Sodium 10 mg 06/22/17 22:00 07/03/17 21:05 Singulair - PO 10 mg HS SAUL Administration Naproxen 500 mg 06/26/17 13:56 07/04/17 09:38 Naprosyn - PO 500 mg BID SAUL Administration Nicotine 21 mg 06/23/17 10:00 07/04/17 09:38 Nicoderm Patch - TD Not Given DAILY SAUL Nicotine Polacrilex 2 mg 06/22/17 14:48 07/01/17 09:41 Nicorette Gum - BUC 2 mg Q2H PRN Administration NICOTINE REPLACEMENT RX Pantoprazole Sodium 40 mg 06/26/17 13:57 07/04/17 09:38 Protonix - PO 40 mg DAILY SAUL Administration Multivit/Folic Acid/Iron 1 tab 06/23/17 10:00 07/04/17 09:38 Vitamins (Sjr) - PO 1 tab DAILY SAUL Administration Pseudoephedrine/Triprolidine 1 combo 06/22/17 14:48 Actifed - PO TID PRN NASAL CONGESTION Quetiapine Fumarate 50 mg 06/23/17 22:00 07/03/17 21:05 Seroquel - PO 50 mg HS SAUL Administration Thiamine HCl 100 mg 06/22/17 22:00 07/03/17 21:05 Vitamin B1 - PO 100 mg HS SAUL Administration Tolnaftate 1 applic 06/26/17 13:54 07/04/17 09:38 Tinactin 1% Cream - TP Not Given BID SAUL Current Side Effect: No Lab tests ordered: No Lab tests reviewed: Yes Provider note:: Patient has compelted today his treatment and met his goals, will continue to address his issues at his [facility] , he accepted powerlessness and identifeied triggers for relapses. Patient verbalized the importance of changnin his behavior and maintain abstinence. He gained insight that he will need more treatment and willing to utilize all supports available to prevent relapse. Seroquel well tolerated, script for 30 days provided, patient is stable for discharge today . Total face to face time:: 20 Mental Status Exam - Mental Status Exam Alert and Oriented to: Time, Place, Person Cognitive Function: Good Patient Appearance: Well Groomed Mood: Hopeful Affect: Appropriate, Mood Congruent Patient Behavior: Cooperative Speech Pattern: Clear, Appropriate Voice Loudness: Normal Thought Process: Goal Oriented Thought Disorder: Not Present Hallucinations: Denies Suicidal Ideation: Denies Homicidal Ideation: Denies Insight/Judgement: Fair Sleep: Fair Appetite: Fair Muscle strength/Tone: Normal Gait/Station: Normal Psychiatric Treatment Plan - Problem List (1) Alcohol dependence Current Visit: No (2) Nicotine dependence Current Visit: No Qualifiers: Nicotine product type: cigarettes Substance use status: uncomplicated Qualified Code(s): F17.210 - Nicotine dependence, cigarettes, uncomplicated (3) Substance-induced sleep disorder Current Visit: No (4) Opioid dependence on agonist therapy Current Visit: No (5) Bipolar disorder Current Visit: Yes
== END 2017-07-04 10:30 | disposition home or self-care (01) | DRG 772 ==
LOC: YASAS 13:49 → Y5N 13:51
PROVIDERS: ADMIT Psychiatry & Neurology Psychiatry; ATTEND Psychiatry & Neurology Psychiatry
PROC: HZ42ZZZ Group Counseling for Substance Abuse Treatment, Cognitive-Behavioral (ICD-10-PCS; principal; 2017-06-22)
DX: F11.20 Opioid dependence, uncomplicated (principal); F10.20 Alcohol dependence, uncomplicated; F31.9 Bipolar disorder, unspecified; F19.282 Other psychoactive substance dependence with psychoactive substance-induced sleep disorder; I25.2 Old myocardial infarction; Z95.5 Presence of coronary angioplasty implant and graft; K21.9 Gastro-esophageal reflux disease without esophagitis; Z86.69 Personal history of other diseases of the nervous system and sense organs; Z59.0 Homelessness
CPT/HCPCS: 94640